=== PATIENT | male | born 1970 | race Caucasian/White ===

== ENCOUNTER → 2017-01-14 | Outpatient (REF) | payer BC, MEDICAID, OTHER | LOC: M SFHCPLAZ 11:04 | PROVIDERS: ATTEND Internal Medicine Infectious Disease | DX: L73.2 Hidradenitis suppurativa (principal) ==

== ENCOUNTER → 2021-01-06 | Outpatient (REF) | payer BC, OTHER ==
[2021-01-06 14:38] LABS: APPEARANCE, URINE CLEAR (CLEAR); BACTERIA, URINE AUTO NEGATIVE (NEGATIVE); BILIRUBIN, URINE AUTO NEGATIVE (NEGATIVE); BLOOD, URINE BLOOD NEGATIVE (NEGATIVE); COLOR, URINE YELLOW (YELLOW); GLUCOSE, URINE (UA) AUTO NEGATIVE (NEGATIVE); KETONE, URINE AUTO NEGATIVE (NEGATIVE); LEUKOCYTE ESTERASE, URINE AUTO NEGATIVE (NEGATIVE); NITRITE, URINE AUTO NEGATIVE (NEGATIVE); PROTEIN, URINE AUTO NEGATIVE (NEGATIVE); RBC, URINE AUTO 0 /HPF (0-3); SPECIFIC GRAVITY URINE AUTO 1.006 (1.002-1.035); SQUAMOUS EPITHELIAL CELL UR AU 0 /HPF (0-6); UROBILINOGEN, URINE AUTO 0.2 mg/dL (0.0-2.0); WBC, URINE AUTO 0 /HPF (0-3)
== END ==
LOC: M SMT 13:26
PROVIDERS: ATTEND Nurse Practitioner Women's Health
DX: R36.1 Hematospermia (principal)

== ENCOUNTER → 2023-01-01 | Outpatient (CLI) | payer BC, OTHER ==
[2023-01-01 09:43] LABS: BASO # 0.1 10^3/uL (0.0-0.2); BASO % 0.8 % (0.0-1.0); EOS # 0.5 10^3/uL (0.0-0.5); EOS % 6.2 % (0.0-3.0); HEMOGLOBIN 14.3 g/dl (13.5-17.5); LYMPH # 2.4 10^3/uL (1.5-5.0); LYMPH % 28.1 % (24.0-44.0); MEAN CORPUSCULAR HEMOGLOBIN 30.6 pg (27.0-33.0); MEAN CORPUSCULAR HGB CONC 35.8 g/dl (32.0-36.5); MEAN CORPUSCULAR VOLUME 85.7 fl (80.0-96.0); MONO # 0.9 10^3/uL (0.0-0.8); MONO % 11.1 % (2.0-8.0); NEUTROPHILS # 4.5 10^3/uL (1.5-8.5); NEUTROPHILS % 53.6 % (36.0-66.0); PLATELET COUNT, AUTOMATED 370 10^3/uL (150-450); RED BLOOD COUNT 4.67 10^6/uL (4.30-6.10); WHITE BLOOD COUNT 8.4 10^3/uL (4.0-10.0)
[2023-01-01 10:08] LABS: HEMOGLOBIN A1c 5.4 % (4.0-6.0)
[2023-01-01 10:14] LABS: ALBUMIN 3.8 G/DL (3.2-5.2); ALKALINE PHOSPHATASE 64 U/L (46-116); ALT/SGPT 27 U/L (7.0-40); AST/SGOT 29 U/L (<34); BILIRUBIN,TOTAL 0.7 MG/DL (0.3-1.2); BLOOD UREA NITROGEN 11 MG/DL (9-23); CALCIUM LEVEL 9.2 MG/DL (8.5-10.1); CARBON DIOXIDE LEVEL 30 MMOL/L (20-31); CHLORIDE LEVEL 92 MMOL/L (98-107); CHOLESTEROL LEVEL 145 MG/DL (<200); CHOLESTEROL RISK RATIO 5.53 (<5); CREATININE FOR GFR 0.67 MG/DL (0.70-1.30); GLOMERULAR FILTRATION RATE > 60.0 (>56); GLUCOSE, FASTING 93 MG/DL (60-100); HDL CHOLESTEROL 26.2 MG/DL (>40); LDL CHOLESTEROL 98.6 MG/DL (<100); NON-HDL-C 118.8 MG/DL; SODIUM LEVEL 128 MMOL/L (136-145); THYROID STIMULATING HORMONE 2.241 uIU/ML (0.55-4.78); TOTAL 25(OH) VITAMIN D 21.4 NG/ML (20.0-100.0); TOTAL PROTEIN 7.4 G/DL (5.7-8.2); TRIGLYCERIDES LEVEL 101 MG/DL (<150)
== END ==
LOC: M WUC 08:11
PROVIDERS: ATTEND Nurse Practitioner Adult Health
DX: E78.5 Hyperlipidemia, unspecified (principal); I10 Essential (primary) hypertension; F17.210 Nicotine dependence, cigarettes, uncomplicated; E55.9 Vitamin D deficiency, unspecified; R53.83 Other fatigue; Z79.899 Other long term (current) drug therapy

== ENCOUNTER → 2023-01-20 | Outpatient (CLI) | payer OTHER | LOC: M RAD 12:08 | PROVIDERS: ATTEND Nurse Practitioner Adult Health | DX: R91.8 Other nonspecific abnormal finding of lung field (principal) ==

== ENCOUNTER → 2023-03-12 | Outpatient (CLI) | payer OTHER ==
[~2023-03-12] MED LIST: AMLO1TAB24 PO; ATEN100T PO; CETI-24 PO; COMBAER6 INH; ECOT81TA5 PO; IBUP-1857 PO; OMEP-173 PO
== END ==
LOC: M WUC 10:48
PROVIDERS: ATTEND Nurse Practitioner Adult Health
DX: J45.909 Unspecified asthma, uncomplicated (principal); R05.1 Acute cough; J06.9 Acute upper respiratory infection, unspecified; M54.16 Radiculopathy, lumbar region; J90 Pleural effusion, not elsewhere classified; J98.11 Atelectasis; M47.816 Spondylosis without myelopathy or radiculopathy, lumbar region; M47.817 Spondylosis without myelopathy or radiculopathy, lumbosacral region

== ENCOUNTER 2023-03-15 16:53 | Inpatient (IN) | payer OTHER ==
[~2023-03-15] VITALS: Ht 198.1 cm; Wt 109.1 kg
[2023-03-15 18:42] LABS: ALBUMIN 3.5 G/DL (3.2-5.2); ALKALINE PHOSPHATASE 87 U/L (46-116); ALT/SGPT 24 U/L (7.0-40); AST/SGOT 28 U/L (<34); BILIRUBIN,DIRECT 0.4 MG/DL (<0.4); BILIRUBIN,TOTAL 0.8 MG/DL (0.3-1.2); BLOOD UREA NITROGEN 11 MG/DL (9-23); CALCIUM LEVEL 9.6 MG/DL (8.5-10.1); CARBON DIOXIDE LEVEL 25 MMOL/L (20-31); CHLORIDE LEVEL 78 MMOL/L (98-107); CREATININE FOR GFR 0.61 MG/DL (0.70-1.30); GLOMERULAR FILTRATION RATE > 60.0 (>56); GLUCOSE, FASTING 95 MG/DL (60-100); POTASSIUM SERUM 4.7 MMOL/L (3.5-5.1); SODIUM LEVEL 113 MMOL/L (136-145); TOTAL PROTEIN 7.6 G/DL (5.7-8.2)
[2023-03-15 18:53] LABS: BASO % 0.3 % (0.0-1.0); EOS # 0.2 10^3/uL (0.0-0.5); EOS % 2.7 % (0.0-3.0); HEMATOCRIT 37.1 % (42.0-52.0); HEMOGLOBIN 13.8 g/dl (13.5-17.5); LYMPH # 2.2 10^3/uL (1.5-5.0); LYMPH % 25.7 % (24.0-44.0); MEAN CORPUSCULAR HEMOGLOBIN 29.7 pg (27.0-33.0); MEAN CORPUSCULAR HGB CONC 37.2 g/dl (32.0-36.5); MONO # 0.9 10^3/uL (0.0-0.8); MONO % 10.7 % (2.0-8.0); NEUTROPHILS # 5.2 10^3/uL (1.5-8.5); PLATELET COUNT, AUTOMATED 399 10^3/uL (150-450); RED BLOOD COUNT 4.64 10^6/uL (4.30-6.10); WHITE BLOOD COUNT 8.7 10^3/uL (4.0-10.0)
[2023-03-15 19:01] LABS: RSV AMPLIFICATION NEGATIVE (NEGATIVE)
[2023-03-15 19:06] LABS: MAGNESIUM LEVEL 1.7 MG/DL (1.8-2.4)
[2023-03-15 19:10] LABS: THYROID STIMULATING HORMONE 1.906 uIU/ML (0.55-4.78)
[2023-03-15 19:11] LABS: FREE T4 1.36 NG/DL (0.89-1.76)
[2023-03-15] MEDS ORDERED: ATEN100T PO (19:16)
[2023-03-15] MEDS ORDERED: COMBAER6 INH (19:16)
[2023-03-15] MEDS ORDERED: OMEP-173 PO (19:16)
[2023-03-15] MEDS ORDERED: CETI-24 PO (19:16)
[2023-03-15] MEDS ORDERED: AMLO1TAB24 PO (19:16)
[2023-03-15] MEDS ORDERED: ECOT81TA5 PO (19:19)
[2023-03-15] MEDS ORDERED: IBUP-1857 PO (19:19)
[2023-03-15] MEDS ORDERED: HOME MED LIST COMPLETE! XX SCH (19:25)
[2023-03-15 19:33] LABS: OSMOLALITY SERUM 238 MOSM/KG (275-295)
[2023-03-15] MEDS ORDERED: methylPREDNISolone 125MG 2ML VIAL IV ONE (20:00)
[2023-03-15] MEDS ORDERED: IPRATROPIUM 0.5MG/ALBUTEROL 2.5MG INH SOL UD 3ML (DUONEB) NEB PRN (20:00)
[2023-03-15] MEDS ORDERED: ISOVUE-370 76% 100ML VIAL As Ordered ONE (20:18)
[2023-03-15 20:40] LABS: CREATININE,RANDOM URINE 196.8 MG/DL
[2023-03-15 20:45] LABS: CK-MB VALUE MASS 4.3 NG/ML (<3.6); CPK CREATINE PHOSPHOKINASE 233 U/L (46-171); MB/CK RELATIVE INDEX 1.84 (< OR =4)
[2023-03-15] MEDS ORDERED: MAG SULF 1GM/100ML (MAG RUN) 1 GM in IV 1 EA IV ONE (20:55)
[2023-03-15 21:21] LABS: BLOOD UREA NITROGEN 11 MG/DL (9-23); CALCIUM LEVEL 8.8 MG/DL (8.5-10.1); CARBON DIOXIDE LEVEL 17 MMOL/L (20-31); CHLORIDE LEVEL 80 MMOL/L (98-107); GLOMERULAR FILTRATION RATE > 60.0 (>56); GLUCOSE, FASTING 95 MG/DL (60-100); POTASSIUM SERUM 4.8 MMOL/L (3.5-5.1); SODIUM LEVEL 111 MMOL/L (136-145)
[2023-03-15] MEDS ORDERED: ACETAMINOPHEN TAB 650MG DOSE (2X325MG) PO PRN (22:15)
[2023-03-15 23:15] VITALS: BP 163/95; TEMP 97; O2SAT 98
[2023-03-15] MEDS: SODIUM CHLORIDE 1 GM TAB PO SCH (23:24)
[2023-03-16 04:01] VITALS: BP 158/90; TEMP 97.5; O2SAT 98
[2023-03-16 05:28] LABS: BLOOD UREA NITROGEN 9 MG/DL (9-23); CALCIUM LEVEL 9.1 MG/DL (8.5-10.1); CARBON DIOXIDE LEVEL 23 MMOL/L (20-31); CHLORIDE LEVEL 80 MMOL/L (98-107); CREATININE FOR GFR 0.42 MG/DL (0.70-1.30); GLOMERULAR FILTRATION RATE > 60.0 (>56); GLUCOSE, FASTING 140 MG/DL (60-100); MAGNESIUM LEVEL 1.9 MG/DL (1.8-2.4); POTASSIUM SERUM 4.3 MMOL/L (3.5-5.1); SODIUM LEVEL 113 MMOL/L (136-145)
[2023-03-16 05:46] LABS: HEMATOCRIT 36.7 % (42.0-52.0); HEMOGLOBIN 13.7 g/dl (13.5-17.5); MEAN CORPUSCULAR HEMOGLOBIN 29.6 pg (27.0-33.0); MEAN CORPUSCULAR VOLUME 79.3 fl (80.0-96.0); PLATELET COUNT, AUTOMATED 331 10^3/uL (150-450); RED BLOOD COUNT 4.63 10^6/uL (4.30-6.10); WHITE BLOOD COUNT 4.8 10^3/uL (4.0-10.0)
[2023-03-16 05:48] LABS: MEAN CORPUSCULAR HGB CONC 37.3 g/dl (32.0-36.5)
[2023-03-16 08:00] VITALS: BP 161/98; TEMP 98.1; O2SAT 96
[2023-03-16] MEDS: SYMBICORT 80/4.5MCG INHALER 6GM INH SCH ×2 (08:00→18:56)
[2023-03-16] MEDS: amLODIPine 5 MG TAB PO SCH (08:18)
[2023-03-16] MEDS: SODIUM CHLORIDE 1 GM TAB PO SCH ×3 (08:18→20:11)
[2023-03-16] MEDS: atenoloL 50 MG TAB PO SCH (08:19)
[2023-03-16] MEDS ORDERED: SODIUM CHLORIDE 1 GM TAB PO ONE (10:00)
[2023-03-16 11:56] LABS: BLOOD UREA NITROGEN 9 MG/DL (9-23); CALCIUM LEVEL 8.9 MG/DL (8.5-10.1); CARBON DIOXIDE LEVEL 25 MMOL/L (20-31); CHLORIDE LEVEL 79 MMOL/L (98-107); CREATININE FOR GFR 0.45 MG/DL (0.70-1.30); GLOMERULAR FILTRATION RATE > 60.0 (>56); GLUCOSE, FASTING 180 MG/DL (60-100); POTASSIUM SERUM 4.3 MMOL/L (3.5-5.1); SODIUM LEVEL 112 MMOL/L (136-145)
[2023-03-16 12:00] VITALS: BP 168/92; TEMP 97.8; O2SAT 96
[2023-03-16 12:24] LABS: PROCALCITONIN <0.04 ng/ml
[2023-03-16] MEDS: IPRATROPIUM 0.5MG/ALBUTEROL 2.5MG INH SOL UD 3ML (DUONEB) NEB SCH ×3 (13:10→18:58)
[2023-03-16] MEDS: COMBIVENT RESPIMAT 100-20MCG INHALER 4GM INH PRN ×2 (13:10→18:59)
[2023-03-16] MEDS: HEPARIN SOD (PORCINE) 5000UNITS/ML 1ML VIAL/SYRINGE SQ SCH ×2 (13:51→20:16)
[2023-03-16 16:00] VITALS: BP 141/87; TEMP 98; O2SAT 96
[2023-03-16] MEDS ORDERED: CALCIUM CARBONATE 500 MG CHEW U/D PO PRN (18:10)
[2023-03-16 18:22] LABS: BLOOD UREA NITROGEN 11 MG/DL (9-23); CALCIUM LEVEL 9.7 MG/DL (8.5-10.1); CARBON DIOXIDE LEVEL 28 MMOL/L (20-31); CHLORIDE LEVEL 81 MMOL/L (98-107); CREATININE FOR GFR 0.52 MG/DL (0.70-1.30); GLOMERULAR FILTRATION RATE > 60.0 (>56); GLUCOSE, FASTING 118 MG/DL (60-100); POTASSIUM SERUM 4.6 MMOL/L (3.5-5.1); SODIUM LEVEL 116 MMOL/L (136-145)
[2023-03-16 20:05] VITALS: BP 147/95; TEMP 96.9; O2SAT 94
[2023-03-16] MEDS: OMEPRAZOLE 20MG CAP PO SCH (20:11)
[2023-03-16] MEDS: CETIRIZINE (ZyrTEC) 10 MG TAB PO SCH (20:11)
[2023-03-16] MEDS: ASPIRIN 81MG ENTERIC TABLET PO SCH (20:11)
[2023-03-16 22:16] LABS: BLOOD UREA NITROGEN 8 MG/DL (9-23); CALCIUM LEVEL 9.3 MG/DL (8.5-10.1); CARBON DIOXIDE LEVEL 26 MMOL/L (20-31); CHLORIDE LEVEL 83 MMOL/L (98-107); CREATININE FOR GFR 0.48 MG/DL (0.70-1.30); GLOMERULAR FILTRATION RATE > 60.0 (>56); GLUCOSE, FASTING 130 MG/DL (60-100); POTASSIUM SERUM 3.8 MMOL/L (3.5-5.1); SODIUM LEVEL 117 MMOL/L (136-145)
[2023-03-17] VITALS: BP 147/89; TEMP 97.9; O2SAT 98
[2023-03-17] MEDS: IPRATROPIUM 0.5MG/ALBUTEROL 2.5MG INH SOL UD 3ML (DUONEB) NEB SCH ×5 (02:00→19:23)
[2023-03-17] MEDS: COMBIVENT RESPIMAT 100-20MCG INHALER 4GM INH PRN ×3 (03:00→19:16)
[2023-03-17 04:00] VITALS: BP 135/83; TEMP 98.5; O2SAT 97
[2023-03-17] MEDS: HEPARIN SOD (PORCINE) 5000UNITS/ML 1ML VIAL/SYRINGE SQ SCH ×3 (05:39→20:14)
[2023-03-17 05:51] LABS: BLOOD UREA NITROGEN 9 MG/DL (9-23); CALCIUM LEVEL 9.6 MG/DL (8.5-10.1); CARBON DIOXIDE LEVEL 28 MMOL/L (20-31); CHLORIDE LEVEL 83 MMOL/L (98-107); CREATININE FOR GFR 0.53 MG/DL (0.70-1.30); GLOMERULAR FILTRATION RATE > 60.0 (>56); GLUCOSE, FASTING 113 MG/DL (60-100); SODIUM LEVEL 120 MMOL/L (136-145)
[2023-03-17] MEDS: SYMBICORT 80/4.5MCG INHALER 6GM INH SCH ×2 (07:37→19:16)
[2023-03-17 07:54] VITALS: BP 160/90; TEMP 98.1; O2SAT 98
[2023-03-17] MEDS: atenoloL 50 MG TAB PO SCH (08:14)
[2023-03-17] MEDS: SODIUM CHLORIDE 1 GM TAB PO SCH ×3 (08:14→20:13)
[2023-03-17] MEDS: amLODIPine 5 MG TAB PO SCH (08:14)
[2023-03-17 11:41] LABS: BLOOD UREA NITROGEN 11 MG/DL (9-23); CALCIUM LEVEL 9.5 MG/DL (8.5-10.1); CARBON DIOXIDE LEVEL 29 MMOL/L (20-31); CHLORIDE LEVEL 82 MMOL/L (98-107); CREATININE FOR GFR 0.54 MG/DL (0.70-1.30); GLOMERULAR FILTRATION RATE > 60.0 (>56); GLUCOSE, FASTING 108 MG/DL (60-100); POTASSIUM SERUM 3.8 MMOL/L (3.5-5.1); SODIUM LEVEL 118 MMOL/L (136-145)
[2023-03-17 12:00] VITALS: BP 149/91; TEMP 97.9; O2SAT 100
[2023-03-17 15:38] VITALS: BP 125/81; TEMP 97.1; O2SAT 99
[2023-03-17 17:01] LABS: BLOOD UREA NITROGEN 12 MG/DL (9-23); CALCIUM LEVEL 9.7 MG/DL (8.5-10.1); CARBON DIOXIDE LEVEL 26 MMOL/L (20-31); CHLORIDE LEVEL 84 MMOL/L (98-107); CREATININE FOR GFR 0.46 MG/DL (0.70-1.30); GLOMERULAR FILTRATION RATE > 60.0 (>56); GLUCOSE, FASTING 105 MG/DL (60-100); SODIUM LEVEL 118 MMOL/L (136-145)
[2023-03-17 17:02] LABS: POTASSIUM SERUM 4.5 MMOL/L (3.5-5.1)
[2023-03-17] MEDS: OMEPRAZOLE 20MG CAP PO SCH (20:13)
[2023-03-17] MEDS: CETIRIZINE (ZyrTEC) 10 MG TAB PO SCH (20:13)
[2023-03-17] MEDS: ASPIRIN 81MG ENTERIC TABLET PO SCH (20:13)
[2023-03-17 23:25] LABS: BLOOD UREA NITROGEN 11 MG/DL (9-23); CALCIUM LEVEL 9.1 MG/DL (8.5-10.1); CARBON DIOXIDE LEVEL 29 MMOL/L (20-31); CHLORIDE LEVEL 88 MMOL/L (98-107); CREATININE FOR GFR 0.54 MG/DL (0.70-1.30); GLOMERULAR FILTRATION RATE > 60.0 (>56); GLUCOSE, FASTING 106 MG/DL (60-100); POTASSIUM SERUM 4.1 MMOL/L (3.5-5.1); SODIUM LEVEL 124 MMOL/L (136-145)
[2023-03-17 23:44] VITALS: BP 147/80; TEMP 96.6; O2SAT 98
[2023-03-18] MEDS: IPRATROPIUM 0.5MG/ALBUTEROL 2.5MG INH SOL UD 3ML (DUONEB) NEB SCH ×4 (01:16→19:27)
[2023-03-18 04:00] VITALS: BP 152/82; TEMP 97; O2SAT 98
[2023-03-18 05:38] LABS: ALBUMIN 3.4 G/DL (3.2-5.2); BLOOD UREA NITROGEN 11 MG/DL (9-23); CALCIUM LEVEL 9.2 MG/DL (8.5-10.1); CARBON DIOXIDE LEVEL 27 MMOL/L (20-31); CHLORIDE LEVEL 87 MMOL/L (98-107); CREATININE FOR GFR 0.48 MG/DL (0.70-1.30); GLOMERULAR FILTRATION RATE > 60.0 (>56); GLUCOSE, FASTING 104 MG/DL (60-100); PHOSPHORUS LEVEL 3.6 MG/DL (2.5-4.9); POTASSIUM SERUM 3.9 MMOL/L (3.5-5.1); SODIUM LEVEL 123 MMOL/L (136-145)
[2023-03-18] MEDS: HEPARIN SOD (PORCINE) 5000UNITS/ML 1ML VIAL/SYRINGE SQ SCH ×3 (06:36→21:13)
[2023-03-18 08:00] VITALS: TEMP 97.6; O2SAT 96
[2023-03-18] MEDS: SYMBICORT 80/4.5MCG INHALER 6GM INH SCH ×2 (08:18→19:26)
[2023-03-18] MEDS: SODIUM CHLORIDE 1 GM TAB PO SCH ×3 (08:39→21:13)
[2023-03-18] MEDS: atenoloL 50 MG TAB PO SCH (08:40)
[2023-03-18] MEDS: amLODIPine 5 MG TAB PO SCH (08:40)
[2023-03-18 12:00] VITALS: BP 126/89; TEMP 96.9; O2SAT 99
[2023-03-18 12:25] LABS: BLOOD UREA NITROGEN 14 MG/DL (9-23); CALCIUM LEVEL 9.5 MG/DL (8.5-10.1); CARBON DIOXIDE LEVEL 26 MMOL/L (20-31); CHLORIDE LEVEL 90 MMOL/L (98-107); CREATININE FOR GFR 0.53 MG/DL (0.70-1.30); GLOMERULAR FILTRATION RATE > 60.0 (>56); GLUCOSE, FASTING 115 MG/DL (60-100); POTASSIUM SERUM 4.3 MMOL/L (3.5-5.1); SODIUM LEVEL 124 MMOL/L (136-145)
[2023-03-18] MEDS: COMBIVENT RESPIMAT 100-20MCG INHALER 4GM INH PRN ×2 (15:26→19:26)
[2023-03-18 16:00] VITALS: BP 113/76; TEMP 97.6; O2SAT 98
[2023-03-18 17:39] LABS: BLOOD UREA NITROGEN 15 MG/DL (9-23); CALCIUM LEVEL 9.5 MG/DL (8.5-10.1); CARBON DIOXIDE LEVEL 26 MMOL/L (20-31); CHLORIDE LEVEL 90 MMOL/L (98-107); CREATININE FOR GFR 0.52 MG/DL (0.70-1.30); GLOMERULAR FILTRATION RATE > 60.0 (>56); GLUCOSE, FASTING 116 MG/DL (60-100); SODIUM LEVEL 125 MMOL/L (136-145)
[2023-03-18 19:59] VITALS: BP 150/89; TEMP 97; O2SAT 98
[2023-03-18] MEDS: ASPIRIN 81MG ENTERIC TABLET PO SCH (21:14)
[2023-03-18] MEDS: OMEPRAZOLE 20MG CAP PO SCH (21:14)
[2023-03-18] MEDS: CETIRIZINE (ZyrTEC) 10 MG TAB PO SCH (21:14)
[2023-03-18 23:25] VITALS: BP 140/99; TEMP 98; O2SAT 98
[2023-03-18 23:44] LABS: BLOOD UREA NITROGEN 14 MG/DL (9-23); CALCIUM LEVEL 8.9 MG/DL (8.5-10.1); CARBON DIOXIDE LEVEL 27 MMOL/L (20-31); CHLORIDE LEVEL 91 MMOL/L (98-107); CREATININE FOR GFR 0.52 MG/DL (0.70-1.30); GLOMERULAR FILTRATION RATE > 60.0 (>56); GLUCOSE, FASTING 115 MG/DL (60-100); POTASSIUM SERUM 4.2 MMOL/L (3.5-5.1); SODIUM LEVEL 127 MMOL/L (136-145)
[2023-03-19] MEDS ORDERED: atenoloL 50 MG TAB PO ONE (01:10)
[2023-03-19 01:34] LABS: MAGNESIUM LEVEL 1.8 MG/DL (1.8-2.4)
[2023-03-19] MEDS: IPRATROPIUM 0.5MG/ALBUTEROL 2.5MG INH SOL UD 3ML (DUONEB) NEB SCH ×4 (02:00→19:33)
[2023-03-19 02:22] VITALS: BP 140/85
[2023-03-19] MEDS: COMBIVENT RESPIMAT 100-20MCG INHALER 4GM INH PRN ×2 (02:44→07:49)
[2023-03-19] MEDS ORDERED: METOPROLOL 5 MG/5 ML VIAL IV SCH (03:05)
[2023-03-19] MEDS ORDERED: METOPROLOL 5 MG/5 ML VIAL IV STA (03:07)
[2023-03-19] MEDS ORDERED: METOPROLOL 5 MG/5 ML VIAL IV ONE (03:15)
[2023-03-19 03:41] VITALS: BP 135/79; TEMP 97.2; O2SAT 97
[2023-03-19 05:39] LABS: HEMATOCRIT 39.1 % (42.0-52.0); MEAN CORPUSCULAR HEMOGLOBIN 29.8 pg (27.0-33.0); MEAN CORPUSCULAR HGB CONC 35.8 g/dl (32.0-36.5); MEAN CORPUSCULAR VOLUME 83.2 fl (80.0-96.0); PLATELET COUNT, AUTOMATED 378 10^3/uL (150-450); WHITE BLOOD COUNT 10.8 10^3/uL (4.0-10.0)
[2023-03-19] MEDS: HEPARIN SOD (PORCINE) 5000UNITS/ML 1ML VIAL/SYRINGE SQ SCH ×3 (05:43→22:55)
[2023-03-19 06:04] LABS: BLOOD UREA NITROGEN 11 MG/DL (9-23); CALCIUM LEVEL 9.1 MG/DL (8.5-10.1); CARBON DIOXIDE LEVEL 27 MMOL/L (20-31); CHLORIDE LEVEL 90 MMOL/L (98-107); GLOMERULAR FILTRATION RATE > 60.0 (>56); GLUCOSE, FASTING 104 MG/DL (60-100); POTASSIUM SERUM 4.1 MMOL/L (3.5-5.1); SODIUM LEVEL 126 MMOL/L (136-145)
[2023-03-19] MEDS ORDERED: FUROSEMIDE 20MG/2ML VIAL IV ONE (06:50)
[2023-03-19] MEDS: SYMBICORT 80/4.5MCG INHALER 6GM INH SCH ×2 (07:50→19:33)
[2023-03-19 08:21] VITALS: BP 124/85; TEMP 97.9; O2SAT 95
[2023-03-19] MEDS: METOPROLOL TART 25 MG TABLET PO SCH ×2 (08:45→20:35)
[2023-03-19] MEDS: SODIUM CHLORIDE 1 GM TAB PO SCH ×3 (08:47→20:34)
[2023-03-19] MEDS: amLODIPine 5 MG TAB PO SCH (09:00)
[2023-03-19] MEDS: atenoloL 50 MG TAB PO SCH (09:00)
[2023-03-19 11:24] LABS: BLOOD UREA NITROGEN 10 MG/DL (9-23); CALCIUM LEVEL 9.3 MG/DL (8.5-10.1); CARBON DIOXIDE LEVEL 31 MMOL/L (20-31); CHLORIDE LEVEL 89 MMOL/L (98-107); GLOMERULAR FILTRATION RATE > 60.0 (>56); GLUCOSE, FASTING 108 MG/DL (60-100); POTASSIUM SERUM 4.1 MMOL/L (3.5-5.1); SODIUM LEVEL 127 MMOL/L (136-145)
[2023-03-19 12:36] VITALS: BP 132/79; TEMP 96.5; O2SAT 98
[2023-03-19] MEDS ORDERED: ACETAMINOPHEN 1000MG 100ML IV BAG As Ordered ONE (13:40)
[2023-03-19] MEDS ORDERED: MIDAZOLAM INJ 2MG/2ML VIAL As Ordered ONE (13:40)
[2023-03-19] MEDS ORDERED: fentaNYL 100 MCG/2 ML INJECTION As Ordered ONE (13:40)
[2023-03-19] MEDS ORDERED: LIDOCAINE 2% 100MG/5ML SDV (FOR ANES.) As Ordered ONE (13:40)
[2023-03-19] MEDS ORDERED: propofoL 200 MG/20 ML VIAL As Ordered ONE (13:41)
[2023-03-19] MEDS ORDERED: ONDANSETRON 4MG 2ML VIAL As Ordered ONE (13:41)
[2023-03-19] MEDS ORDERED: SUGAMMADEX SODIUM 500 MG/5 ML VIAL (BRIDION) As Ordered ONE (13:41)
[2023-03-19] MEDS ORDERED: ROCURONIUM BROMIDE 50MG/5ML VIAL As Ordered ONE (13:41)
[2023-03-19] MEDS ORDERED: THROMBIN 5,000 UNITS VIAL As Ordered ONE (13:47)
[2023-03-19] MEDS ORDERED: CETACAINE SPRAY 5GM As Ordered ONE (13:47)
[2023-03-19] MEDS ORDERED: EPINEPHrine 1MG/10ML SYRINGE 1.5IN As Ordered ONE (13:47)
[2023-03-19] MEDS ORDERED: ePHEDrine SULFATE 25 MG/5 ML(5MG/ML) SYRINGE As Ordered ONE (14:17)
[2023-03-19] MEDS ORDERED: VASOPRESSIN INJ 20UNITS/ML 1ML VIAL As Ordered ONE (14:17)
[2023-03-19] MEDS ORDERED: oxyCODONE 5MG TAB PO PRN (14:45)
[2023-03-19] MEDS ORDERED: fentaNYL 100 MCG/2 ML INJECTION IV PRN (14:45)
[2023-03-19] MEDS ORDERED: HYDROMORPHONE HCL 0.5 MG/ 0.5 ML SYRINGE IV PRN (14:45)
[2023-03-19] MEDS ORDERED: ONDANSETRON 4MG 2ML VIAL IV PRN (14:45)
[2023-03-19] MEDS ORDERED: LR 1,000 ML IV SCH (14:45)
[2023-03-19 17:41] LABS: BLOOD UREA NITROGEN 12 MG/DL (9-23); CALCIUM LEVEL 9.5 MG/DL (8.5-10.1); CARBON DIOXIDE LEVEL 31 MMOL/L (20-31); CHLORIDE LEVEL 91 MMOL/L (98-107); CREATININE FOR GFR 0.66 MG/DL (0.70-1.30); GLOMERULAR FILTRATION RATE > 60.0 (>56); GLUCOSE, FASTING 117 MG/DL (60-100); POTASSIUM SERUM 4.4 MMOL/L (3.5-5.1); SODIUM LEVEL 127 MMOL/L (136-145)
[2023-03-19 20:00] VITALS: BP 114/65; TEMP 96.9; O2SAT 97
[2023-03-19] MEDS: ASPIRIN 81MG ENTERIC TABLET PO SCH (20:34)
[2023-03-19] MEDS: CETIRIZINE (ZyrTEC) 10 MG TAB PO SCH (20:34)
[2023-03-19] MEDS: OMEPRAZOLE 20MG CAP PO SCH (20:34)
[2023-03-19 20:35] VITALS: BP 114/65
[2023-03-19 23:58] LABS: BLOOD UREA NITROGEN 13 MG/DL (9-23); CALCIUM LEVEL 9.1 MG/DL (8.5-10.1); CARBON DIOXIDE LEVEL 26 MMOL/L (20-31); CHLORIDE LEVEL 93 MMOL/L (98-107); CREATININE FOR GFR 0.52 MG/DL (0.70-1.30); GLOMERULAR FILTRATION RATE > 60.0 (>56); GLUCOSE, FASTING 164 MG/DL (60-100); POTASSIUM SERUM 4.1 MMOL/L (3.5-5.1); SODIUM LEVEL 128 MMOL/L (136-145)
[2023-03-20] VITALS (9 sets, daily range): BP systolic 125–143; BP diastolic 68–82; TEMP 96.3–97; O2SAT 95–99
[2023-03-20] MEDS: IPRATROPIUM 0.5MG/ALBUTEROL 2.5MG INH SOL UD 3ML (DUONEB) NEB SCH ×3 (01:21→13:47)
[2023-03-20 05:48] LABS: BLOOD UREA NITROGEN 12 MG/DL (9-23); CALCIUM LEVEL 9.7 MG/DL (8.5-10.1); CARBON DIOXIDE LEVEL 29 MMOL/L (20-31); CHLORIDE LEVEL 95 MMOL/L (98-107); CREATININE FOR GFR 0.61 MG/DL (0.70-1.30); GLOMERULAR FILTRATION RATE > 60.0 (>56); GLUCOSE, FASTING 122 MG/DL (60-100); POTASSIUM SERUM 4.9 MMOL/L (3.5-5.1); SODIUM LEVEL 129 MMOL/L (136-145)
[2023-03-20] MEDS: HEPARIN SOD (PORCINE) 5000UNITS/ML 1ML VIAL/SYRINGE SQ SCH ×2 (06:14→14:00)
[2023-03-20] MEDS: SYMBICORT 80/4.5MCG INHALER 6GM INH SCH (07:21)
[2023-03-20] MEDS: SODIUM CHLORIDE 1 GM TAB PO SCH (09:37)
[2023-03-20] MEDS: METOPROLOL TART 25 MG TABLET PO SCH (09:37)
[2023-03-20] MEDS: amLODIPine 5 MG TAB PO SCH (09:38)
[2023-03-23] MEDS ORDERED: ALBU8.5H (13:37)
[2023-03-25] MEDS ORDERED: ONDA-84 PO (13:36)
[2023-03-25] MEDS ORDERED: PROC10TA5 PO (13:36)
== END 2023-03-20 15:37 | disposition home or self-care (01) | DRG 136 ==
LOC: M ED 16:53 → M ED INP 22:14 → M ICU 23:07 → M PCU 03-16 19:52
PROVIDERS: ADMIT Family Medicine; ATTEND Family Medicine
PROC: 0BB78ZX Excision of Left Main Bronchus, Via Natural or Artificial Opening Endoscopic, Diagnostic (ICD-10-PCS; principal; 2023-03-19 14:00)
DX: C34.02 Malignant neoplasm of left main bronchus (principal); E22.2 Syndrome of inappropriate secretion of antidiuretic hormone; E87.1 Hypo-osmolality and hyponatremia; I48.91 Unspecified atrial fibrillation; I10 Essential (primary) hypertension; J44.9 Chronic obstructive pulmonary disease, unspecified; K21.9 Gastro-esophageal reflux disease without esophagitis; Z79.82 Long term (current) use of aspirin; Z79.899 Other long term (current) drug therapy; R06.00 Dyspnea, unspecified; F17.200 Nicotine dependence, unspecified, uncomplicated

== ENCOUNTER → 2023-03-20 | Outpatient (CLI) | payer OTHER ==
[~2023-03-20] MED LIST changes: +ALBU8.5H; +ONDA-84 PO; +PROC10TA5 PO
== END ==
LOC: M EKG 15:47
PROVIDERS: ATTEND Internal Medicine
DX: I48.0 Paroxysmal atrial fibrillation (principal)

== ENCOUNTER → 2023-03-22 | Outpatient (CLI) | payer OTHER ==
[~2023-03-22] MED LIST changes: -ONDA-84 PO; -PROC10TA5 PO
== END ==
LOC: M ONCR 13:01
PROVIDERS: ATTEND General Practice
DX: C34.32 Malignant neoplasm of lower lobe, left bronchus or lung (principal); F17.210 Nicotine dependence, cigarettes, uncomplicated; Z71.2 Person consulting for explanation of examination or test findings; Z79.82 Long term (current) use of aspirin; Z79.899 Other long term (current) drug therapy

== ENCOUNTER → 2023-04-08 | Outpatient (RCR) | payer OTHER ==
[~2023-04-08] MED LIST changes: +CARA1TAB6 PO; +LIDO30CR18 TOP; +MAGN400T35 PO; +ONDA-84 PO; +OXYC1SOL3 PO; +PROC10TA5 PO; +WELLTAB38 PO
== END ==
LOC: M ONCR 03-23 14:26
PROVIDERS: ATTEND General Practice
DX: Z51.0 Encounter for antineoplastic radiation therapy (principal); C34.32 Malignant neoplasm of lower lobe, left bronchus or lung

== ENCOUNTER → 2023-04-13 | Outpatient (CLI) | payer OTHER ==
[~2023-04-13] MED LIST changes: -CARA1TAB6 PO; -LIDO30CR18 TOP; -MAGN400T35 PO; -OXYC1SOL3 PO; +PROHANCE 279.3MG/ML 15ML VIAL As Ordered ONE; +PROHANCE 279.3MG/ML 5ML VIAL As Ordered ONE
== END ==
LOC: M RAD 13:28
PROVIDERS: ATTEND General Practice
DX: C34.32 Malignant neoplasm of lower lobe, left bronchus or lung (principal)
CPT/HCPCS: 70553; A9576

== ENCOUNTER → 2023-04-15 | Outpatient (CLI) | payer OTHER ==
[~2023-04-15] MED LIST changes: +LIDO30CR18 TOP; +MAGN400T35 PO; -PROHANCE 279.3MG/ML 15ML VIAL As Ordered ONE; -PROHANCE 279.3MG/ML 5ML VIAL As Ordered ONE
== END ==
LOC: M RAD 04-14 11:49
PROVIDERS: ATTEND General Practice
DX: C34.32 Malignant neoplasm of lower lobe, left bronchus or lung (principal); M16.11 Unilateral primary osteoarthritis, right hip; M17.11 Unilateral primary osteoarthritis, right knee

== ENCOUNTER → 2023-04-26 | Outpatient (CLI) | payer OTHER | LOC: M PLARAD 08:43 | PROVIDERS: ATTEND General Practice | DX: C34.32 Malignant neoplasm of lower lobe, left bronchus or lung (principal); J84.10 Pulmonary fibrosis, unspecified; R59.0 Localized enlarged lymph nodes | CPT/HCPCS: 78815; A9552 ==

== ENCOUNTER 2023-05-07 07:51 | Outpatient (RCR) | payer OTHER ==
[~2023-05-07 07:51] MED LIST changes: +CARA1TAB6 PO; +OXYC1SOL3 PO
== END 2023-05-09 ==
LOC: M ONCR 07:51
PROVIDERS: ATTEND General Practice
DX: Z51.0 Encounter for antineoplastic radiation therapy (principal); C34.32 Malignant neoplasm of lower lobe, left bronchus or lung

== ENCOUNTER 2023-05-27 10:39 | Outpatient (RCR) | payer OTHER ==
[2023-05-27] MEDS ORDERED: OXYC1SOL3 PO (11:09)
[2023-06-15] MEDS ORDERED: MAGN400T2 PO (13:39)
== END 2023-06-09 ==
LOC: M ONCR 10:39
PROVIDERS: ATTEND General Practice
DX: Z51.0 Encounter for antineoplastic radiation therapy (principal); C34.32 Malignant neoplasm of lower lobe, left bronchus or lung

== ENCOUNTER → 2023-06-30 | Outpatient (CLI) | payer OTHER ==
[~2023-06-30] MED LIST changes: +MAGN400T2 PO; +SLOWTAB2 PO
[2023-06-30 09:59] LABS: BASO # 0.1 10^3/uL (0.0-0.2); BASO % 0.6 % (0.0-1.0); EOS % 0.3 % (0.0-3.0); HEMOGLOBIN 10.3 g/dl (13.5-17.5); LYMPH # 1.5 10^3/uL (1.5-5.0); MEAN CORPUSCULAR HEMOGLOBIN 33.1 pg (27.0-33.0); MEAN CORPUSCULAR HGB CONC 33.2 g/dl (32.0-36.5); MEAN CORPUSCULAR VOLUME 99.7 fl (80.0-96.0); MONO # 1.8 10^3/uL (0.0-0.8); MONO % 14.2 % (2.0-8.0); NEUTROPHILS # 9.2 10^3/uL (1.5-8.5); NEUTROPHILS % 72.4 % (36.0-66.0); PLATELET COUNT, AUTOMATED 394 10^3/uL (150-450); RED BLOOD COUNT 3.11 10^6/uL (4.30-6.10); WHITE BLOOD COUNT 12.7 10^3/uL (4.0-10.0)
[2023-06-30 10:07] LABS: HEMOGLOBIN A1c 4.9 % (4.0-6.0)
[2023-06-30 10:30] LABS: THYROID STIMULATING HORMONE 2.237 uIU/ML (0.55-4.78)
[2023-06-30 10:34] LABS: ALBUMIN 3.4 G/DL (3.2-5.2); ALKALINE PHOSPHATASE 78 U/L (46-116); ALT/SGPT 11 U/L (7.0-40); AST/SGOT 8 U/L (<34); BILIRUBIN,TOTAL 0.4 MG/DL (0.3-1.2); BLOOD UREA NITROGEN 9 MG/DL (9-23); CALCIUM LEVEL 9.1 MG/DL (8.5-10.1); CARBON DIOXIDE LEVEL 31 MMOL/L (20-31); CHLORIDE LEVEL 97 MMOL/L (98-107); CHOLESTEROL LEVEL 215 MG/DL (<200); CHOLESTEROL RISK RATIO 6.57 (<5); CREATININE FOR GFR 0.74 MG/DL (0.70-1.30); GLOMERULAR FILTRATION RATE > 60.0 (>56); GLUCOSE, FASTING 109 MG/DL (60-100); HDL CHOLESTEROL 32.7 MG/DL (>40); LDL CHOLESTEROL 151.5 MG/DL (<100); MAGNESIUM LEVEL 1.3 MG/DL (1.8-2.4); NON-HDL-C 182.3 MG/DL; POTASSIUM SERUM 3.9 MMOL/L (3.5-5.1); SODIUM LEVEL 134 MMOL/L (136-145); TOTAL PROTEIN 6.9 G/DL (5.7-8.2); TRIGLYCERIDES LEVEL 154 MG/DL (<150)
== END ==
LOC: M WUC 08:13
PROVIDERS: ATTEND Internal Medicine Cardiovascular Disease
DX: I48.0 Paroxysmal atrial fibrillation (principal); C34.92 Malignant neoplasm of unspecified part of left bronchus or lung; I11.0 Hypertensive heart disease with heart failure; E87.1 Hypo-osmolality and hyponatremia; I50.9 Heart failure, unspecified; Z13.1 Encounter for screening for diabetes mellitus

== ENCOUNTER → 2023-08-02 | Outpatient (CLI) | payer OTHER | LOC: M RAD 11:46 | PROVIDERS: ATTEND General Practice | DX: C34.32 Malignant neoplasm of lower lobe, left bronchus or lung (principal); C79.31 Secondary malignant neoplasm of brain ==

== ENCOUNTER → 2023-08-02 | Outpatient (CLI) | payer OTHER ==
[~2023-08-02] MED LIST changes: +GASTROGRAFIN SOLUTION 30ML As Ordered ONE; +ISOVUE-370 76% 100ML VIAL As Ordered ONE; +PROHANCE 279.3MG/ML 15ML VIAL As Ordered ONE; +PROHANCE 279.3MG/ML 5ML VIAL As Ordered ONE
== END ==
LOC: M RAD 11:59
PROVIDERS: ATTEND Nurse Practitioner
DX: C34.90 Malignant neoplasm of unspecified part of unspecified bronchus or lung (principal); N28.1 Cyst of kidney, acquired
CPT/HCPCS: 71260; 74177; A9576; Q9963; Q9967

== ENCOUNTER 2023-08-05 10:35 | Outpatient (RCR) | payer OTHER ==
[~2023-08-05 10:35] MED LIST changes: -GASTROGRAFIN SOLUTION 30ML As Ordered ONE; -ISOVUE-370 76% 100ML VIAL As Ordered ONE; -PROHANCE 279.3MG/ML 15ML VIAL As Ordered ONE; -PROHANCE 279.3MG/ML 5ML VIAL As Ordered ONE
[2023-08-05] MEDS ORDERED: MEMA10TA19 PO (11:45)
[2023-08-10] MEDS ORDERED: CARV12.5 (11:24)
[2023-08-10] MEDS ORDERED: ELIQ5TAB (11:24)
== END 2023-08-08 ==
LOC: M ONCR 10:35
PROVIDERS: ATTEND General Practice
DX: Z51.0 Encounter for antineoplastic radiation therapy (principal); C79.31 Secondary malignant neoplasm of brain

== ENCOUNTER → 2023-08-23 | Outpatient (CLI) | payer OTHER ==
[~2023-08-23] MED LIST changes: +CARV12.5; +ELIQ5TAB; +MEMA10TA PO
[2023-08-23 12:40] LABS: BASO # 0.1 10^3/uL (0.0-0.2); BASO % 0.7 % (0.0-1.0); EOS # 0.2 10^3/uL (0.0-0.5); EOS % 2.8 % (0.0-3.0); LYMPH # 1.7 10^3/uL (1.5-5.0); LYMPH % 22.9 % (24.0-44.0); MEAN CORPUSCULAR HGB CONC 32.5 g/dl (32.0-36.5); MEAN CORPUSCULAR VOLUME 95.2 fl (80.0-96.0); MONO # 0.7 10^3/uL (0.0-0.8); MONO % 9.4 % (2.0-8.0); NEUTROPHILS # 4.8 10^3/uL (1.5-8.5); NEUTROPHILS % 63.8 % (36.0-66.0); PLATELET COUNT, AUTOMATED 279 10^3/uL (150-450); WHITE BLOOD COUNT 7.5 10^3/uL (4.0-10.0)
[2023-08-23 13:07] LABS: BLOOD UREA NITROGEN 14 MG/DL (9-23); CARBON DIOXIDE LEVEL 32 MMOL/L (20-31); CHLORIDE LEVEL 102 MMOL/L (98-107); CREATININE FOR GFR 0.83 MG/DL (0.70-1.30); GLOMERULAR FILTRATION RATE > 60.0 (>56); GLUCOSE, FASTING 91 MG/DL (60-100); MAGNESIUM LEVEL 1.6 MG/DL (1.8-2.4); POTASSIUM SERUM 3.4 MMOL/L (3.5-5.1); SODIUM LEVEL 142 MMOL/L (136-145)
== END ==
LOC: M WUC 09:45
PROVIDERS: ATTEND Internal Medicine Cardiovascular Disease
DX: I50.9 Heart failure, unspecified (principal); I48.91 Unspecified atrial fibrillation; C34.92 Malignant neoplasm of unspecified part of left bronchus or lung; E87.1 Hypo-osmolality and hyponatremia; Z13.1 Encounter for screening for diabetes mellitus

== ENCOUNTER 2023-08-30 07:55 | Outpatient (RCR) | payer OTHER | END 2023-09-07 | LOC: M ONCR 07:55 | PROVIDERS: ATTEND General Practice | DX: Z51.0 Encounter for antineoplastic radiation therapy (principal); C34.32 Malignant neoplasm of lower lobe, left bronchus or lung; C79.31 Secondary malignant neoplasm of brain ==

== ENCOUNTER → 2023-09-09 | Outpatient (CLI) | payer OTHER ==
[2023-09-09 11:32] LABS: BLOOD UREA NITROGEN 19 MG/DL (9-23); CALCIUM LEVEL 9.6 MG/DL (8.5-10.1); CARBON DIOXIDE LEVEL 29 MMOL/L (20-31); CHLORIDE LEVEL 101 MMOL/L (98-107); CREATININE FOR GFR 0.86 MG/DL (0.70-1.30); GLOMERULAR FILTRATION RATE > 60.0 (>56); GLUCOSE, FASTING 106 MG/DL (60-100); MAGNESIUM LEVEL 1.7 MG/DL (1.8-2.4); POTASSIUM SERUM 3.9 MMOL/L (3.5-5.1); SODIUM LEVEL 137 MMOL/L (136-145)
== END ==
LOC: M WUC 08:27
PROVIDERS: ATTEND Internal Medicine Cardiovascular Disease
DX: I48.0 Paroxysmal atrial fibrillation (principal); I11.9 Hypertensive heart disease without heart failure; E87.6 Hypokalemia

== ENCOUNTER → 2023-10-08 | Outpatient (CLI) | payer OTHER | LOC: M WUC 08:23 | PROVIDERS: ATTEND Nurse Practitioner Adult Health | DX: R07.81 Pleurodynia (principal); Z95.828 Presence of other vascular implants and grafts ==

== ENCOUNTER → 2023-10-18 | Outpatient (CLI) | payer OTHER ==
[~2023-10-18] MED LIST changes: +DEXA4TA PO; +GASTROGRAFIN SOLUTION 30ML As Ordered ONE; +ISOVUE-370 76% 100ML VIAL As Ordered ONE
== END ==
LOC: M RAD 07:12
PROVIDERS: ATTEND Nurse Practitioner
DX: C34.90 Malignant neoplasm of unspecified part of unspecified bronchus or lung (principal); J47.9 Bronchiectasis, uncomplicated; K76.0 Fatty (change of) liver, not elsewhere classified; N28.1 Cyst of kidney, acquired; J84.10 Pulmonary fibrosis, unspecified
CPT/HCPCS: 71260; 74177; Q9963; Q9967

== ENCOUNTER → 2023-10-22 | Outpatient (CLI) | payer OTHER ==
[~2023-10-22] MED LIST changes: -ALBU8.5H; +ALBU8.5H INH; -CARV12.5; +CARV12.5 PO; -ELIQ5TAB; +ELIQ5TAB PO; +ENTR1TAB PO; +GABA-1171 PO; -GASTROGRAFIN SOLUTION 30ML As Ordered ONE; -ISOVUE-370 76% 100ML VIAL As Ordered ONE; +JARD1TAB PO; +POTA-298 PO
== END ==
LOC: M ONCR 08:19
PROVIDERS: ATTEND General Practice
DX: C79.31 Secondary malignant neoplasm of brain (principal); C34.32 Malignant neoplasm of lower lobe, left bronchus or lung; G62.9 Polyneuropathy, unspecified; Z92.3 Personal history of irradiation; Z92.21 Personal history of antineoplastic chemotherapy; F17.210 Nicotine dependence, cigarettes, uncomplicated; Z79.52 Long term (current) use of systemic steroids; Z79.899 Other long term (current) drug therapy; Z79.01 Long term (current) use of anticoagulants; Z71.2 Person consulting for explanation of examination or test findings

== ENCOUNTER → 2023-11-22 | Outpatient (CLI) | payer OTHER ==
[~2023-11-22] MED LIST changes: +PROHANCE 279.3MG/ML 15ML VIAL As Ordered ONE; +PROHANCE 279.3MG/ML 5ML VIAL As Ordered ONE
== END ==
LOC: M RAD 12:04
PROVIDERS: ATTEND General Practice
DX: C79.31 Secondary malignant neoplasm of brain (principal); G93.89 Other specified disorders of brain
CPT/HCPCS: 70553; A9576

== ENCOUNTER → 2023-11-30 | Outpatient (CLI) | payer OTHER ==
[~2023-11-30] MED LIST changes: +BUPR150T12 PO; -PROHANCE 279.3MG/ML 15ML VIAL As Ordered ONE; -PROHANCE 279.3MG/ML 5ML VIAL As Ordered ONE
== END ==
LOC: M ONCR 08:12
PROVIDERS: ATTEND General Practice
DX: C79.31 Secondary malignant neoplasm of brain (principal); C34.32 Malignant neoplasm of lower lobe, left bronchus or lung; F17.210 Nicotine dependence, cigarettes, uncomplicated; Z79.01 Long term (current) use of anticoagulants; Z79.899 Other long term (current) drug therapy; Z92.21 Personal history of antineoplastic chemotherapy; Z92.3 Personal history of irradiation

== ENCOUNTER → 2024-01-14 | Outpatient (CLI) | payer OTHER ==
[~2024-01-14] MED LIST changes: +FLOM0.4C39 PO; +GASTROGRAFIN SOLUTION 30ML As Ordered ONE; +ISOVUE-370 76% 100ML VIAL As Ordered ONE; +OXYC-517 PO
== END ==
LOC: M RAD 07:28
PROVIDERS: ATTEND Internal Medicine Medical Oncology
DX: C34.90 Malignant neoplasm of unspecified part of unspecified bronchus or lung (principal); N28.1 Cyst of kidney, acquired
CPT/HCPCS: 71260; 74177; Q9963; Q9967

== ENCOUNTER 2024-01-16 17:24 | Emergency (ER) | payer OTHER ==
[~2024-01-16] VITALS: Ht 198.1 cm; Wt 104.2 kg
[~2024-01-16 17:24] MED LIST changes: -FLOM0.4C39 PO; -GASTROGRAFIN SOLUTION 30ML As Ordered ONE; -ISOVUE-370 76% 100ML VIAL As Ordered ONE; -OXYC-517 PO
[2024-01-16] MEDS: PERCOCET 5MG/325MG TAB PO ONE (20:59)
[2024-01-16 21:14] LABS: BASO % 0.5 % (0.0-1.0); EOS # 0.2 10^3/uL (0.0-0.5); HEMATOCRIT 41.9 % (42.0-52.0); HEMOGLOBIN 15.1 g/dl (13.5-17.5); LYMPH # 1.3 10^3/uL (1.5-5.0); LYMPH % 16.4 % (24.0-44.0); MEAN CORPUSCULAR HEMOGLOBIN 31.1 pg (27.0-33.0); MEAN CORPUSCULAR VOLUME 86.4 fl (80.0-96.0); MONO # 0.7 10^3/uL (0.0-0.8); MONO % 8.6 % (2.0-8.0); NEUTROPHILS # 5.9 10^3/uL (1.5-8.5); NEUTROPHILS % 72.1 % (36.0-66.0); PLATELET COUNT, AUTOMATED 286 10^3/uL (150-450); RED BLOOD COUNT 4.85 10^6/uL (4.30-6.10); WHITE BLOOD COUNT 8.2 10^3/uL (4.0-10.0)
[2024-01-16 21:18] LABS: ERYTHROCYTE SEDIMENTATION RATE 40 mm/hr (0-20)
[2024-01-16 21:23] LABS: INR 1.1; PARTIAL THROMBOPLASTIN TIME 34.1 SECONDS (24.8-34.2); PROTHROMBIN TIME 13.9 SECONDS (12.5-14.5)
[2024-01-16 21:36] LABS: ALKALINE PHOSPHATASE 76 U/L (46-116); ALT/SGPT 19 U/L (7.0-40); AST/SGOT 12 U/L (<34); BILIRUBIN,DIRECT 0.3 MG/DL (<0.4); BILIRUBIN,TOTAL 0.7 MG/DL (0.3-1.2); BLOOD UREA NITROGEN 8 MG/DL (9-23); CALCIUM LEVEL 9.9 MG/DL (8.5-10.1); CARBON DIOXIDE LEVEL 26 MMOL/L (20-31); CHLORIDE LEVEL 88 MMOL/L (98-107); CREATININE FOR GFR 0.55 MG/DL (0.70-1.30); GLOMERULAR FILTRATION RATE > 60.0 (>56); GLUCOSE, FASTING 90 MG/DL (60-100); MAGNESIUM LEVEL 1.6 MG/DL (1.8-2.4); POTASSIUM SERUM 3.5 MMOL/L (3.5-5.1); SODIUM LEVEL 121 MMOL/L (136-145); TOTAL PROTEIN 7.7 G/DL (5.7-8.2)
[2024-01-16] MEDS: ONDANSETRON 4MG 2ML VIAL IV ONE (22:08)
[2024-01-16] MEDS: MAG SULF 1GM/100ML (MAG RUN) 1 GM in IV 1 EA IV ONE (22:53)
[2024-01-16] MEDS: NS 1,000 ML IV SCH (22:53)
[2024-01-17] MEDS ORDERED: NICOTINE POLACRILEX 2 MG GUM PO PRN (01:25)
[2024-01-17] MEDS: KCL 10MEQ/100ML SWI (KRUN) 10 MEQ in IV 1 EA IV ONE (02:56)
[2024-01-17] MEDS: PERCOCET 5MG/325MG TAB PO PRN (08:11)
[2024-01-17 09:29] VITALS: BP 128/88; TEMP 96; O2SAT 100
== END 2024-01-17 09:30 | disposition short-term general hospital (02) ==
LOC: M ED 17:24
DX: G83.4 Cauda equina syndrome (principal); M54.41 Lumbago with sciatica, right side; M51.86 Other intervertebral disc disorders, lumbar region; M51.36 Other intervertebral disc degeneration, lumbar region; C34.90 Malignant neoplasm of unspecified part of unspecified bronchus or lung; C71.9 Malignant neoplasm of brain, unspecified; I10 Essential (primary) hypertension; K21.9 Gastro-esophageal reflux disease without esophagitis; J44.9 Chronic obstructive pulmonary disease, unspecified; E78.5 Hyperlipidemia, unspecified; F17.200 Nicotine dependence, unspecified, uncomplicated; F12.10 Cannabis abuse, uncomplicated; Z86.79 Personal history of other diseases of the circulatory system; Z79.01 Long term (current) use of anticoagulants; Z79.899 Other long term (current) drug therapy
CPT/HCPCS: 72148; 80047; 80048; 80076; 83036; 83735; 85025; 85610; 85652; 85730; 86140; 96361; 96374; 96375; 99284; J2405; J3475

== ENCOUNTER 2024-01-28 09:16 | Outpatient (RCR) | payer OTHER ==
[2023-03-23 13:28] VITALS: BP 147/99; O2SAT 100
[2023-03-23 14:43] LABS: BASO # 0.1 10^3/uL (0.0-0.2); BASO % 0.6 % (0.0-1.0); EOS # 0.3 10^3/uL (0.0-0.5); EOS % 2.6 % (0.0-3.0); HEMATOCRIT 38.1 % (42.0-52.0); HEMOGLOBIN 13.5 g/dl (13.5-17.5); LYMPH # 3.7 10^3/uL (1.5-5.0); LYMPH % 28.4 % (24.0-44.0); MEAN CORPUSCULAR HEMOGLOBIN 29.7 pg (27.0-33.0); MEAN CORPUSCULAR HGB CONC 35.4 g/dl (32.0-36.5); MEAN CORPUSCULAR VOLUME 83.7 fl (80.0-96.0); MONO # 1.4 10^3/uL (0.0-0.8); MONO % 10.5 % (2.0-8.0); NEUTROPHILS # 7.5 10^3/uL (1.5-8.5); NEUTROPHILS % 57.3 % (36.0-66.0); PLATELET COUNT, AUTOMATED 405 10^3/uL (150-450); RED BLOOD COUNT 4.55 10^6/uL (4.30-6.10); WHITE BLOOD COUNT 13.1 10^3/uL (4.0-10.0)
[2023-03-23 14:53] LABS: INR 1.11
[2023-03-23 14:54] LABS: PARTIAL THROMBOPLASTIN TIME 34.5 SECONDS (24.8-34.2)
[2023-03-23 15:07] LABS: ALBUMIN 3.3 G/DL (3.2-5.2); ALKALINE PHOSPHATASE 81 U/L (46-116); ALT/SGPT 33 U/L (7.0-40); AST/SGOT 17 U/L (<34); BILIRUBIN,TOTAL 0.7 MG/DL (0.3-1.2); BLOOD UREA NITROGEN 11 MG/DL (9-23); CALCIUM LEVEL 9.3 MG/DL (8.5-10.1); CARBON DIOXIDE LEVEL 29 MMOL/L (20-31); CHLORIDE LEVEL 86 MMOL/L (98-107); CREATININE FOR GFR 0.59 MG/DL (0.70-1.30); GLOMERULAR FILTRATION RATE > 60.0 (>56); GLUCOSE, FASTING 108 MG/DL (60-100); POTASSIUM SERUM 3.9 MMOL/L (3.5-5.1); SODIUM LEVEL 122 MMOL/L (136-145); TOTAL PROTEIN 7.2 G/DL (5.7-8.2)
[2023-03-25 08:19] LABS: BASO % 0.4 % (0.0-1.0); EOS # 0.3 10^3/uL (0.0-0.5); EOS % 3.1 % (0.0-3.0); HEMATOCRIT 38.1 % (42.0-52.0); HEMOGLOBIN 13.5 g/dl (13.5-17.5); LYMPH # 1.9 10^3/uL (1.5-5.0); LYMPH % 20.1 % (24.0-44.0); MEAN CORPUSCULAR HEMOGLOBIN 29.5 pg (27.0-33.0); MEAN CORPUSCULAR HGB CONC 35.4 g/dl (32.0-36.5); MEAN CORPUSCULAR VOLUME 83.4 fl (80.0-96.0); MONO # 1.2 10^3/uL (0.0-0.8); NEUTROPHILS # 5.8 10^3/uL (1.5-8.5); NEUTROPHILS % 62.9 % (36.0-66.0); PLATELET COUNT, AUTOMATED 416 10^3/uL (150-450); RED BLOOD COUNT 4.57 10^6/uL (4.30-6.10); WHITE BLOOD COUNT 9.2 10^3/uL (4.0-10.0)
[2023-03-25 08:22] VITALS: BP 122/85; O2SAT 99
[2023-03-25 08:33] LABS: ALKALINE PHOSPHATASE 79 U/L (46-116); ALT/SGPT 35 U/L (7.0-40); AST/SGOT 19 U/L (<34); BILIRUBIN,TOTAL 0.7 MG/DL (0.3-1.2); BLOOD UREA NITROGEN 10 MG/DL (9-23); CALCIUM LEVEL 9.1 MG/DL (8.5-10.1); CARBON DIOXIDE LEVEL 29 MMOL/L (20-31); CHLORIDE LEVEL 87 MMOL/L (98-107); CREATININE FOR GFR 0.59 MG/DL (0.70-1.30); GLOMERULAR FILTRATION RATE > 60.0 (>56); GLUCOSE, FASTING 118 MG/DL (60-100); MAGNESIUM LEVEL 1.4 MG/DL (1.8-2.4); POTASSIUM SERUM 4.1 MMOL/L (3.5-5.1); SODIUM LEVEL 122 MMOL/L (136-145); TOTAL PROTEIN 6.9 G/DL (5.7-8.2)
[2023-03-25 08:36] LABS: HEPATITIS B SURFACE ANTIBODY NEGATIVE (POSITIVE)
[2023-03-25 08:48] LABS: HEPATITIS B SURFACE ANTIGEN NEGATIVE (NEGATIVE)
[2023-03-25 09:09] LABS: HEPATITIS B CORE ANTIBODY IGM NEGATIVE (NEGATIVE)
[2023-03-25] MEDS: NS (Normal Saline) 0.9% 1,000 ML IV SCH ×2 (09:24→14:13)
[2023-03-25] MEDS: MAG SULF 1GM/100ML (MAG RUN) 100 ML IV SCH (09:24)
[2023-03-25] MEDS: FOSAPREPITANT 150 MG in NS 245 ML IV SCH (09:25)
[2023-03-25] MEDS: PALONOSETRON 0.25MG/5ML VIAL (ALOXI) IV SCH (09:25)
[2023-03-25] MEDS: MANNITOL IV SCH (10:37)
[2023-03-25] MEDS: NS B BRAUN IV SCH ×2 (10:38→13:03)
[2023-03-25] MEDS: CISPLATIN IV SCH (10:38)
[2023-03-25] MEDS: ETOPOSIDE IV SCH (13:03)
[2023-03-25] MEDS: SODIUM CHLORIDE 0.9% INJ 10 ML SYR IV PRN (15:30)
[2023-03-26 12:00] VITALS: BP 146/84; O2SAT 98
[2023-03-26] MEDS: dexAMETHasone 4 MG TAB PO SCH (12:20)
[2023-03-26] MEDS: PROCHLORPERAZINE 5MG TAB PO SCH (12:21)
[2023-03-26] MEDS: NS B BRAUN IV SCH (12:57)
[2023-03-26] MEDS: ETOPOSIDE IV SCH (12:57)
[2023-03-29 12:30] VITALS: BP 103/75; O2SAT 100
[2023-03-29] MEDS: PROCHLORPERAZINE 5MG TAB PO SCH (13:12)
[2023-03-29] MEDS: dexAMETHasone 4 MG TAB PO SCH (13:12)
[2023-03-29] MEDS: ETOPOSIDE IV SCH (13:52)
[2023-03-29] MEDS: NS B BRAUN IV SCH (13:52)
[2023-03-29] MEDS: SODIUM CHLORIDE 0.9% INJ 10 ML SYR IV PRN (14:59)
[2023-04-16 08:49] LABS: BASO % 0.5 % (0.0-1.0); EOS # 0.1 10^3/uL (0.0-0.5); EOS % 0.8 % (0.0-3.0); HEMOGLOBIN 12.3 g/dl (13.5-17.5); LYMPH # 1.8 10^3/uL (1.5-5.0); LYMPH % 21.7 % (24.0-44.0); MEAN CORPUSCULAR HEMOGLOBIN 29.7 pg (27.0-33.0); MEAN CORPUSCULAR HGB CONC 34.2 g/dl (32.0-36.5); MONO # 0.9 10^3/uL (0.0-0.8); MONO % 10.8 % (2.0-8.0); NEUTROPHILS # 5.3 10^3/uL (1.5-8.5); NEUTROPHILS % 63.8 % (36.0-66.0); PLATELET COUNT, AUTOMATED 364 10^3/uL (150-450); RED BLOOD COUNT 4.14 10^6/uL (4.30-6.10); WHITE BLOOD COUNT 8.3 10^3/uL (4.0-10.0)
[2023-04-16 09:11] VITALS: BP 129/89; O2SAT 98
[2023-04-16 09:13] LABS: ALBUMIN 3.2 G/DL (3.2-5.2); ALKALINE PHOSPHATASE 87 U/L (46-116); ALT/SGPT 21 U/L (7.0-40); AST/SGOT 10 U/L (<34); BILIRUBIN,TOTAL 0.4 MG/DL (0.3-1.2); BLOOD UREA NITROGEN 11 MG/DL (9-23); CALCIUM LEVEL 9.1 MG/DL (8.5-10.1); CARBON DIOXIDE LEVEL 31 MMOL/L (20-31); CHLORIDE LEVEL 98 MMOL/L (98-107); CREATININE FOR GFR 0.65 MG/DL (0.70-1.30); GLOMERULAR FILTRATION RATE > 60.0 (>56); GLUCOSE, FASTING 98 MG/DL (60-100); MAGNESIUM LEVEL 1.4 MG/DL (1.8-2.4); POTASSIUM SERUM 3.8 MMOL/L (3.5-5.1); SODIUM LEVEL 136 MMOL/L (136-145); TOTAL PROTEIN 7.2 G/DL (5.7-8.2)
[2023-04-19 08:45] VITALS: BP 130/87; O2SAT 98
[2023-04-19] MEDS: MAGNESIUM SULFATE IV ONE ×2 (09:27→15:43)
[2023-04-19] MEDS: NS B BRAUN IV ONE ×2 (09:27→15:43)
[2023-04-19] MEDS: PALONOSETRON 0.25MG/5ML VIAL (ALOXI) IV SCH (11:26)
[2023-04-19] MEDS: FOSAPREPITANT 150 MG in NS 245 ML IV SCH (11:27)
[2023-04-19] MEDS: MANNITOL IV SCH (12:11)
[2023-04-19] MEDS: NS B BRAUN IV SCH ×2 (12:13→14:25)
[2023-04-19] MEDS: CISPLATIN IV SCH (12:13)
[2023-04-19] MEDS: ETOPOSIDE IV SCH (14:25)
[2023-04-19] MEDS: SODIUM CHLORIDE 0.9% INJ 10 ML SYR IV PRN (17:44)
[2023-04-20 08:55] VITALS: BP 131/85; O2SAT 98
[2023-04-20] MEDS: PROCHLORPERAZINE 5MG TAB PO SCH (09:11)
[2023-04-20] MEDS: dexAMETHasone 4 MG TAB PO SCH (09:11)
[2023-04-20] MEDS: NS B BRAUN IV SCH (10:21)
[2023-04-20] MEDS: ETOPOSIDE IV SCH (10:21)
[2023-04-20] MEDS: SODIUM CHLORIDE 0.9% INJ 10 ML SYR IV PRN (11:28)
[2023-04-21 09:04] VITALS: BP 149/95; O2SAT 98
[2023-04-21] MEDS: dexAMETHasone 4 MG TAB PO SCH (09:14)
[2023-04-21] MEDS: PROCHLORPERAZINE 5MG TAB PO SCH (09:15)
[2023-04-21] MEDS: ETOPOSIDE IV SCH (10:08)
[2023-04-21] MEDS: NS B BRAUN IV SCH (10:08)
[2023-05-11 09:05] VITALS: BP 142/94; O2SAT 98
[2023-05-11 09:17] LABS: BASO % 0.4 % (0.0-1.0); EOS # 0.1 10^3/uL (0.0-0.5); EOS % 1.5 % (0.0-3.0); HEMATOCRIT 33.5 % (42.0-52.0); HEMOGLOBIN 11.5 g/dl (13.5-17.5); MEAN CORPUSCULAR HEMOGLOBIN 30.3 pg (27.0-33.0); MEAN CORPUSCULAR HGB CONC 34.3 g/dl (32.0-36.5); MEAN CORPUSCULAR VOLUME 88.4 fl (80.0-96.0); MONO # 1.1 10^3/uL (0.0-0.8); MONO % 13.1 % (2.0-8.0); NEUTROPHILS # 5.6 10^3/uL (1.5-8.5); PLATELET COUNT, AUTOMATED 343 10^3/uL (150-450); RED BLOOD COUNT 3.79 10^6/uL (4.30-6.10)
[2023-05-11 09:21] LABS: ALBUMIN 3.4 G/DL (3.2-5.2); ALKALINE PHOSPHATASE 84 U/L (46-116); ALT/SGPT 18 U/L (7.0-40); AST/SGOT 15 U/L (<34); BILIRUBIN,TOTAL 0.3 MG/DL (0.3-1.2); BLOOD UREA NITROGEN 7 MG/DL (9-23); CALCIUM LEVEL 9.2 MG/DL (8.5-10.1); CARBON DIOXIDE LEVEL 32 MMOL/L (20-31); CHLORIDE LEVEL 98 MMOL/L (98-107); CREATININE FOR GFR 0.57 MG/DL (0.70-1.30); GLOMERULAR FILTRATION RATE > 60.0 (>56); GLUCOSE, FASTING 101 MG/DL (60-100); POTASSIUM SERUM 3.6 MMOL/L (3.5-5.1); SODIUM LEVEL 135 MMOL/L (136-145); TOTAL PROTEIN 7.5 G/DL (5.7-8.2)
[2023-05-12 07:35] VITALS: BP 118/79; O2SAT 97
[2023-05-12] MEDS: MAG SULF 1GM/100ML (MAG RUN) 100 ML IV SCH (07:48)
[2023-05-12] MEDS: NS (Normal Saline) 0.9% 1,000 ML IV SCH ×2 (07:50→14:31)
[2023-05-12] MEDS: PALONOSETRON 0.25MG/5ML VIAL (ALOXI) IV SCH (08:43)
[2023-05-12] MEDS: FOSAPREPITANT 150 MG in NS 245 ML IV SCH (08:44)
[2023-05-12] MEDS: MANNITOL IV SCH (10:19)
[2023-05-12] MEDS: NS B BRAUN IV SCH ×2 (10:24→13:12)
[2023-05-12] MEDS: CISPLATIN IV SCH (10:24)
[2023-05-12] MEDS: ETOPOSIDE IV SCH (13:12)
[2023-05-12] MEDS: SODIUM CHLORIDE 0.9% INJ 10 ML SYR IV PRN (15:38)
[2023-05-13 08:27] VITALS: BP 150/94; O2SAT 99
[2023-05-13] MEDS: dexAMETHasone 4 MG TAB PO SCH (08:33)
[2023-05-13] MEDS: PROCHLORPERAZINE 5MG TAB PO SCH (08:33)
[2023-05-13] MEDS: NS B BRAUN IV SCH (09:40)
[2023-05-13] MEDS: ETOPOSIDE IV SCH (09:40)
[2023-05-13] MEDS: SODIUM CHLORIDE 0.9% INJ 10 ML SYR IV PRN (10:55)
[2023-05-14 08:20] VITALS: BP 149/93; O2SAT 99
[2023-05-14] MEDS: PROCHLORPERAZINE 5MG TAB PO SCH (08:51)
[2023-05-14] MEDS: dexAMETHasone 4 MG TAB PO SCH (08:51)
[2023-05-14] MEDS: ETOPOSIDE IV SCH (09:40)
[2023-05-14] MEDS: NS B BRAUN IV SCH (09:40)
[2023-06-01 08:54] VITALS: BP 136/91; O2SAT 99
[2023-06-01 09:05] LABS: BASO % 0.6 % (0.0-1.0); EOS # 0.1 10^3/uL (0.0-0.5); EOS % 1.7 % (0.0-3.0); HEMATOCRIT 27.2 % (42.0-52.0); HEMOGLOBIN 9.4 g/dl (13.5-17.5); LYMPH # 1.1 10^3/uL (1.5-5.0); LYMPH % 22.6 % (24.0-44.0); MEAN CORPUSCULAR HEMOGLOBIN 31.8 pg (27.0-33.0); MEAN CORPUSCULAR HGB CONC 34.6 g/dl (32.0-36.5); MEAN CORPUSCULAR VOLUME 91.9 fl (80.0-96.0); MONO # 0.8 10^3/uL (0.0-0.8); MONO % 16.4 % (2.0-8.0); NEUTROPHILS # 2.7 10^3/uL (1.5-8.5); NEUTROPHILS % 55.2 % (36.0-66.0); PLATELET COUNT, AUTOMATED 296 10^3/uL (150-450); RED BLOOD COUNT 2.96 10^6/uL (4.30-6.10); WHITE BLOOD COUNT 4.8 10^3/uL (4.0-10.0)
[2023-06-01 09:32] LABS: ALBUMIN 3.2 G/DL (3.2-5.2); ALKALINE PHOSPHATASE 70 U/L (46-116); ALT/SGPT 19 U/L (7.0-40); AST/SGOT 12 U/L (<34); BILIRUBIN,TOTAL 0.3 MG/DL (0.3-1.2); BLOOD UREA NITROGEN 9 MG/DL (9-23); CALCIUM LEVEL 8.8 MG/DL (8.5-10.1); CARBON DIOXIDE LEVEL 31 MMOL/L (20-31); CHLORIDE LEVEL 101 MMOL/L (98-107); GLOMERULAR FILTRATION RATE > 60.0 (>56); GLUCOSE, FASTING 132 MG/DL (60-100); MAGNESIUM LEVEL 1.1 MG/DL (1.8-2.4); POTASSIUM SERUM 3.6 MMOL/L (3.5-5.1); SODIUM LEVEL 137 MMOL/L (136-145); TOTAL PROTEIN 6.8 G/DL (5.7-8.2)
[2023-06-02 08:05] VITALS: BP 143/95; O2SAT 99
[2023-06-02] MEDS: MAGNESIUM SULFATE IV ONE ×2 (08:13→14:38)
[2023-06-02] MEDS: NS B BRAUN IV ONE ×2 (08:13→14:38)
[2023-06-02] MEDS: FAMOTIDINE 20MG/2ML VIAL IV ONE (09:23)
[2023-06-02] MEDS: FOSAPREPITANT 150 MG in NS 245 ML IV SCH (09:23)
[2023-06-02] MEDS: PALONOSETRON 0.25MG/5ML VIAL (ALOXI) IV SCH (10:37)
[2023-06-02] MEDS: MANNITOL IV SCH (11:14)
[2023-06-02] MEDS: CISPLATIN IV SCH (11:20)
[2023-06-02] MEDS: NS B BRAUN IV SCH ×2 (11:20→13:30)
[2023-06-02] MEDS: ETOPOSIDE IV SCH (13:30)
[2023-06-02] MEDS: SODIUM CHLORIDE 0.9% INJ 10 ML SYR IV PRN (16:55)
[2023-06-03] MEDS: dexAMETHasone 4 MG TAB PO SCH (08:14)
[2023-06-03] MEDS: PROCHLORPERAZINE 5MG TAB PO SCH (08:14)
[2023-06-03 08:47] VITALS: BP 131/88; O2SAT 100
[2023-06-03] MEDS: NS B BRAUN IV SCH (09:26)
[2023-06-03] MEDS: ETOPOSIDE IV SCH (09:26)
[2023-06-04] MEDS: PROCHLORPERAZINE 5MG TAB PO SCH (08:51)
[2023-06-04] MEDS: dexAMETHasone 4 MG TAB PO SCH (08:51)
[2023-06-04 09:20] VITALS: BP 120/74; O2SAT 100
[2023-06-04] MEDS: ETOPOSIDE IV SCH (09:38)
[2023-06-04] MEDS: NS B BRAUN IV SCH (09:38)
[2023-06-15 11:40] VITALS: BP 141/95; O2SAT 100
[2023-06-15 12:13] LABS: ALBUMIN 3.1 G/DL (3.2-5.2); ALKALINE PHOSPHATASE 70 U/L (46-116); ALT/SGPT 12 U/L (7.0-40); AST/SGOT 8 U/L (<34); BILIRUBIN,TOTAL 0.3 MG/DL (0.3-1.2); BLOOD UREA NITROGEN 13 MG/DL (9-23); CALCIUM LEVEL 8.2 MG/DL (8.5-10.1); CARBON DIOXIDE LEVEL 30 MMOL/L (20-31); CHLORIDE LEVEL 99 MMOL/L (98-107); CREATININE FOR GFR 0.58 MG/DL (0.70-1.30); GLOMERULAR FILTRATION RATE > 60.0 (>56); GLUCOSE, FASTING 123 MG/DL (60-100); POTASSIUM SERUM 3.5 MMOL/L (3.5-5.1); SODIUM LEVEL 134 MMOL/L (136-145); TOTAL PROTEIN 6.5 G/DL (5.7-8.2)
[2023-06-15 14:15] LABS: BASO % 1.3 % (0.0-1.0); EOS % 0.6 % (0.0-3.0); HEMATOCRIT 22.4 % (42.0-52.0); HEMOGLOBIN 7.8 g/dl (13.5-17.5); LYMPH % 59.4 % (24.0-44.0); MEAN CORPUSCULAR HEMOGLOBIN 32.8 pg (27.0-33.0); MEAN CORPUSCULAR HGB CONC 34.8 g/dl (32.0-36.5); MEAN CORPUSCULAR VOLUME 94.1 fl (80.0-96.0); MONO # 0.2 10^3/uL (0.0-0.8); MONO % 13.1 % (2.0-8.0); NEUTROPHILS % 24.3 % (36.0-66.0); PLATELET COUNT, AUTOMATED 106 10^3/uL (150-450); RED BLOOD COUNT 2.38 10^6/uL (4.30-6.10); WHITE BLOOD COUNT 1.6 10^3/uL (4.0-10.0)
[2023-06-15 14:16] LABS: NEUTROPHILS # 0.4 10^3/uL (1.5-8.5)
[2023-06-16 07:50] VITALS: BP 124/86; O2SAT 100
[2023-06-16] MEDS: NS B BRAUN IV ONE (08:25)
[2023-06-16] MEDS: MAGNESIUM SULFATE IV ONE (08:25)
[2023-06-16] MEDS: SODIUM CHLORIDE 0.9% INJ 10 ML SYR IV PRN (12:46)
[2023-06-29 09:56] LABS: ALBUMIN 3.4 G/DL (3.2-5.2); ALKALINE PHOSPHATASE 76 U/L (46-116); ALT/SGPT 9 U/L (7.0-40); AST/SGOT < 8 U/L (<34); BILIRUBIN,TOTAL 0.4 MG/DL (0.3-1.2); BLOOD UREA NITROGEN 9 MG/DL (9-23); CALCIUM LEVEL 9.1 MG/DL (8.5-10.1); CARBON DIOXIDE LEVEL 29 MMOL/L (20-31); CHLORIDE LEVEL 97 MMOL/L (98-107); CREATININE FOR GFR 0.65 MG/DL (0.70-1.30); GLOMERULAR FILTRATION RATE > 60.0 (>56); GLUCOSE, FASTING 108 MG/DL (60-100); MAGNESIUM LEVEL 1.2 MG/DL (1.8-2.4); POTASSIUM SERUM 3.9 MMOL/L (3.5-5.1); SODIUM LEVEL 132 MMOL/L (136-145); TOTAL PROTEIN 6.9 G/DL (5.7-8.2)
[2023-06-29] MEDS: SODIUM CHLORIDE 0.9% INJ 10 ML SYR IV PRN (10:53)
[2023-08-09 12:21] LABS: BASO # 0.1 10^3/uL (0.0-0.2); BASO % 0.6 % (0.0-1.0); EOS # 0.4 10^3/uL (0.0-0.5); EOS % 4.8 % (0.0-3.0); HEMATOCRIT 36.4 % (42.0-52.0); HEMOGLOBIN 12.1 g/dl (13.5-17.5); LYMPH # 2.1 10^3/uL (1.5-5.0); LYMPH % 26.4 % (24.0-44.0); MEAN CORPUSCULAR HEMOGLOBIN 31.2 pg (27.0-33.0); MEAN CORPUSCULAR HGB CONC 33.2 g/dl (32.0-36.5); MEAN CORPUSCULAR VOLUME 93.8 fl (80.0-96.0); MONO # 0.6 10^3/uL (0.0-0.8); NEUTROPHILS # 4.7 10^3/uL (1.5-8.5); NEUTROPHILS % 59.8 % (36.0-66.0); PLATELET COUNT, AUTOMATED 283 10^3/uL (150-450); RED BLOOD COUNT 3.88 10^6/uL (4.30-6.10); WHITE BLOOD COUNT 7.9 10^3/uL (4.0-10.0)
[2023-08-09 12:38] LABS: ALBUMIN 3.7 G/DL (3.2-5.2); ALKALINE PHOSPHATASE 65 U/L (46-116); ALT/SGPT 15 U/L (7.0-40); AST/SGOT 15 U/L (<34); BILIRUBIN,TOTAL 0.2 MG/DL (0.3-1.2); BLOOD UREA NITROGEN 11 MG/DL (9-23); CALCIUM LEVEL 9.5 MG/DL (8.5-10.1); CARBON DIOXIDE LEVEL 29 MMOL/L (20-31); CHLORIDE LEVEL 103 MMOL/L (98-107); CREATININE FOR GFR 0.68 MG/DL (0.70-1.30); GLOMERULAR FILTRATION RATE > 60.0 (>56); GLUCOSE, FASTING 91 MG/DL (60-100); POTASSIUM SERUM 3.5 MMOL/L (3.5-5.1); SODIUM LEVEL 136 MMOL/L (136-145); TOTAL PROTEIN 7.3 G/DL (5.7-8.2)
[2023-08-10 11:17] VITALS: BP 162/95; O2SAT 98
[2023-09-10] MEDS: SODIUM CHLORIDE 0.9% INJ 10 ML SYR IV PRN (08:12)
[2023-09-10 08:22] LABS: BASO # 0.1 10^3/uL (0.0-0.2); BASO % 0.6 % (0.0-1.0); EOS # 0.3 10^3/uL (0.0-0.5); EOS % 3.1 % (0.0-3.0); HEMATOCRIT 42.6 % (42.0-52.0); LYMPH # 1.5 10^3/uL (1.5-5.0); LYMPH % 15.1 % (24.0-44.0); MEAN CORPUSCULAR HEMOGLOBIN 30.3 pg (27.0-33.0); MEAN CORPUSCULAR HGB CONC 32.9 g/dl (32.0-36.5); MEAN CORPUSCULAR VOLUME 92.2 fl (80.0-96.0); MONO # 0.8 10^3/uL (0.0-0.8); MONO % 8.5 % (2.0-8.0); NEUTROPHILS % 72.3 % (36.0-66.0); PLATELET COUNT, AUTOMATED 249 10^3/uL (150-450); RED BLOOD COUNT 4.62 10^6/uL (4.30-6.10); WHITE BLOOD COUNT 9.7 10^3/uL (4.0-10.0)
[2023-09-10 08:54] LABS: ALBUMIN 3.4 G/DL (3.2-5.2); ALKALINE PHOSPHATASE 77 U/L (46-116); ALT/SGPT 10 U/L (7.0-40); AST/SGOT 8 U/L (<34); BILIRUBIN,TOTAL 0.2 MG/DL (0.3-1.2); BLOOD UREA NITROGEN 16 MG/DL (9-23); CALCIUM LEVEL 9.3 MG/DL (8.5-10.1); CARBON DIOXIDE LEVEL 27 MMOL/L (20-31); CHLORIDE LEVEL 105 MMOL/L (98-107); CREATININE FOR GFR 0.78 MG/DL (0.70-1.30); GLOMERULAR FILTRATION RATE > 60.0 (>56); GLUCOSE, FASTING 129 MG/DL (60-100); POTASSIUM SERUM 3.7 MMOL/L (3.5-5.1); SODIUM LEVEL 139 MMOL/L (136-145); TOTAL PROTEIN 7.7 G/DL (5.7-8.2)
[2023-09-13 08:10] VITALS: BP_DIAS 94; O2SAT 98
[2023-10-22] MEDS: SODIUM CHLORIDE 0.9% INJ 10 ML SYR IV PRN (08:14)
[2023-10-22 08:25] LABS: BASO % 0.3 % (0.0-1.0); EOS # 0.4 10^3/uL (0.0-0.5); EOS % 4.2 % (0.0-3.0); HEMATOCRIT 42.8 % (42.0-52.0); HEMOGLOBIN 14.7 g/dl (13.5-17.5); LYMPH # 1.6 10^3/uL (1.5-5.0); MEAN CORPUSCULAR HEMOGLOBIN 30.8 pg (27.0-33.0); MEAN CORPUSCULAR HGB CONC 34.3 g/dl (32.0-36.5); MEAN CORPUSCULAR VOLUME 89.5 fl (80.0-96.0); MONO # 0.8 10^3/uL (0.0-0.8); MONO % 8.5 % (2.0-8.0); NEUTROPHILS # 6.9 10^3/uL (1.5-8.5); NEUTROPHILS % 70.3 % (36.0-66.0); PLATELET COUNT, AUTOMATED 218 10^3/uL (150-450); RED BLOOD COUNT 4.78 10^6/uL (4.30-6.10); WHITE BLOOD COUNT 9.8 10^3/uL (4.0-10.0)
[2023-10-22 09:01] LABS: ALBUMIN 3.6 G/DL (3.2-5.2); ALKALINE PHOSPHATASE 74 U/L (46-116); ALT/SGPT 19 U/L (7.0-40); AST/SGOT 8 U/L (<34); BILIRUBIN,TOTAL 0.6 MG/DL (0.3-1.2); BLOOD UREA NITROGEN 12 MG/DL (9-23); CALCIUM LEVEL 8.8 MG/DL (8.5-10.1); CARBON DIOXIDE LEVEL 30 MMOL/L (20-31); CHLORIDE LEVEL 101 MMOL/L (98-107); GLOMERULAR FILTRATION RATE > 60.0 (>56); GLUCOSE, FASTING 101 MG/DL (60-100); POTASSIUM SERUM 3.8 MMOL/L (3.5-5.1); SODIUM LEVEL 136 MMOL/L (136-145); TOTAL PROTEIN 6.8 G/DL (5.7-8.2)
[2023-10-25 08:18] VITALS: BP 128/94; O2SAT 97
[2023-12-06] MEDS: SODIUM CHLORIDE 0.9% INJ 10 ML SYR IV PRN (07:56)
[2023-12-06 08:14] LABS: BASO # 0.1 10^3/uL (0.0-0.2); BASO % 0.7 % (0.0-1.0); EOS # 0.2 10^3/uL (0.0-0.5); EOS % 3.2 % (0.0-3.0); HEMATOCRIT 37.4 % (42.0-52.0); HEMOGLOBIN 12.7 g/dl (13.5-17.5); LYMPH # 1.2 10^3/uL (1.5-5.0); LYMPH % 17.8 % (24.0-44.0); MEAN CORPUSCULAR HEMOGLOBIN 31.1 pg (27.0-33.0); MEAN CORPUSCULAR VOLUME 91.4 fl (80.0-96.0); MONO # 0.7 10^3/uL (0.0-0.8); MONO % 9.9 % (2.0-8.0); NEUTROPHILS # 4.7 10^3/uL (1.5-8.5); PLATELET COUNT, AUTOMATED 261 10^3/uL (150-450); RED BLOOD COUNT 4.09 10^6/uL (4.30-6.10); WHITE BLOOD COUNT 6.9 10^3/uL (4.0-10.0)
[2023-12-06 08:48] LABS: ALBUMIN 3.6 G/DL (3.2-5.2); ALKALINE PHOSPHATASE 60 U/L (46-116); ALT/SGPT 15 U/L (7.0-40); AST/SGOT 13 U/L (<34); BILIRUBIN,TOTAL 0.7 MG/DL (0.3-1.2); BLOOD UREA NITROGEN 8 MG/DL (9-23); CALCIUM LEVEL 9.3 MG/DL (8.5-10.1); CARBON DIOXIDE LEVEL 28 MMOL/L (20-31); CHLORIDE LEVEL 100 MMOL/L (98-107); CREATININE FOR GFR 0.63 MG/DL (0.70-1.30); GLOMERULAR FILTRATION RATE > 60.0 (>56); GLUCOSE, FASTING 118 MG/DL (60-100); POTASSIUM SERUM 3.4 MMOL/L (3.5-5.1); SODIUM LEVEL 134 MMOL/L (136-145); TOTAL PROTEIN 7.2 G/DL (5.7-8.2)
[2023-12-07 08:23] VITALS: BP 132/88; O2SAT 98
[2024-01-27] MEDS: SODIUM CHLORIDE 0.9% INJ 10 ML SYR IV PRN (07:49)
[2024-01-27 07:59] LABS: BASO # 0.1 10^3/uL (0.0-0.2); BASO % 0.7 % (0.0-1.0); HEMATOCRIT 42.4 % (42.0-52.0); HEMOGLOBIN 14.7 g/dl (13.5-17.5); LYMPH # 0.3 10^3/uL (1.5-5.0); LYMPH % 2.7 % (24.0-44.0); MEAN CORPUSCULAR HEMOGLOBIN 31.3 pg (27.0-33.0); MEAN CORPUSCULAR HGB CONC 34.7 g/dl (32.0-36.5); MEAN CORPUSCULAR VOLUME 90.2 fl (80.0-96.0); MONO # 0.6 10^3/uL (0.0-0.8); NEUTROPHILS # 8.4 10^3/uL (1.5-8.5); NEUTROPHILS % 88.7 % (36.0-66.0); PLATELET COUNT, AUTOMATED 207 10^3/uL (150-450); WHITE BLOOD COUNT 9.4 10^3/uL (4.0-10.0)
[2024-01-27 08:25] LABS: ALBUMIN 3.6 G/DL (3.2-5.2); ALKALINE PHOSPHATASE 71 U/L (46-116); ALT/SGPT 26 U/L (7.0-40); AST/SGOT 9 U/L (<34); BILIRUBIN,TOTAL 0.9 MG/DL (0.3-1.2); BLOOD UREA NITROGEN 21 MG/DL (9-23); CALCIUM LEVEL 9.4 MG/DL (8.5-10.1); CARBON DIOXIDE LEVEL 26 MMOL/L (20-31); CHLORIDE LEVEL 97 MMOL/L (98-107); CREATININE FOR GFR 0.56 MG/DL (0.70-1.30); GLOMERULAR FILTRATION RATE > 60.0 (>56); GLUCOSE, FASTING 140 MG/DL (60-100); SODIUM LEVEL 128 MMOL/L (136-145); TOTAL PROTEIN 6.8 G/DL (5.7-8.2)
[~2024-01-28] VITALS: Ht 198.1 cm; Wt 99.4 kg
[~2024-01-28 09:16] MED LIST changes: +MAG SULF 1GM/100ML (MAG RUN) 100 ML IV SCH; +MAGNESIUM SULFATE IV ONE; +NS (Normal Saline) 0.9% 1,000 ML IV SCH; +NS B BRAUN IV ONE; +OXYC-517 PO; +PROCHLORPERAZINE 5MG TAB PO SCH; +SODIUM CHLORIDE 0.9% INJ 10 ML SYR IV PRN; +dexAMETHasone 4 MG TAB PO SCH
[2024-01-28] MEDS ORDERED: FLOM0.4C39 PO (09:19)
[2024-01-28 09:28] VITALS: BP 145/95; O2SAT 99
[2024-02-03] MEDS ORDERED: OXYC5SOL11 PO ×2 (09:28)
[2024-02-22] MEDS ORDERED: MAGN64TASA PO (20:18)
[2024-03-13] MEDS ORDERED: LACT20EL PO (10:08)
[2024-03-13] MEDS ORDERED: HYOS125TA PO (10:08)
[2024-03-13] MEDS ORDERED: ONDA-282 PO (10:08)
[2024-03-13] MEDS ORDERED: ATIV1TAB10 PO ×2 (10:08→12:46)
[2024-03-13] MEDS ORDERED: MOM30SS2 PO (10:08)
[2024-03-13] MEDS ORDERED: BISA10SU PR (10:08)
[2024-03-13] MEDS ORDERED: ATIV1TAB7 PO (10:08)
[2024-03-13] MEDS ORDERED: NYST-38 SS (10:08)
[2024-03-13] MEDS ORDERED: MORP1SOL SL (10:08)
[2024-03-13] MEDS ORDERED: MYLASSUD PO (10:08)
[2024-03-13] MEDS ORDERED: PANT40TA29 PO (10:08)
[2024-03-13] MEDS ORDERED: CALC200T15 PO (10:08)
[2024-03-13] MEDS ORDERED: MORP1SOL5 PO (12:46)
== END 2024-05-06 | disposition expired ==
LOC: M ONCM 09:16
PROVIDERS: ATTEND Internal Medicine Medical Oncology
DX: C34.32 Malignant neoplasm of lower lobe, left bronchus or lung (principal); C77.1 Secondary and unspecified malignant neoplasm of intrathoracic lymph nodes; G95.89 Other specified diseases of spinal cord; G62.0 Drug-induced polyneuropathy; I10 Essential (primary) hypertension; I48.91 Unspecified atrial fibrillation; Z79.82 Long term (current) use of aspirin; Z79.899 Other long term (current) drug therapy; F17.210 Nicotine dependence, cigarettes, uncomplicated; R42 Dizziness and giddiness; H91.90 Unspecified hearing loss, unspecified ear; R53.83 Other fatigue; R63.8 Other symptoms and signs concerning food and fluid intake; K21.9 Gastro-esophageal reflux disease without esophagitis
CPT/HCPCS: 36415; 36591; 80053; 83735; 85025; 85610; 85730; 86705; 86706; 87340; 96365; 96366; 96367; 96368; 96375; 96413; 96415; 96417; G0463; J1100; J1453; J1642; J2469; J3475; J3490; J9060; J9181; S0028

== ENCOUNTER 2024-01-28 16:25 | Outpatient (RCR) | payer OTHER ==
[~2024-01-28 16:25] MED LIST changes: +FLOM0.4C39 PO; -MAG SULF 1GM/100ML (MAG RUN) 100 ML IV SCH; -MAGNESIUM SULFATE IV ONE; -NS (Normal Saline) 0.9% 1,000 ML IV SCH; -NS B BRAUN IV ONE; -PROCHLORPERAZINE 5MG TAB PO SCH; -SODIUM CHLORIDE 0.9% INJ 10 ML SYR IV PRN; -dexAMETHasone 4 MG TAB PO SCH
[2024-02-03] MEDS ORDERED: OXYC5SOL11 PO ×2 (09:28)
== END 2024-02-07 | disposition home or self-care (01) ==
LOC: M ONCR 16:25
PROVIDERS: ATTEND General Practice
DX: Z51.0 Encounter for antineoplastic radiation therapy (principal); C79.40 Secondary malignant neoplasm of unspecified part of nervous system

== ENCOUNTER → 2024-02-11 | Outpatient (CLI) | payer OTHER ==
[~2024-02-11] MED LIST changes: +OXYC5SOL11 PO
== END ==
LOC: M ONCR 13:21
PROVIDERS: ATTEND General Practice
DX: C34.32 Malignant neoplasm of lower lobe, left bronchus or lung (principal); C79.31 Secondary malignant neoplasm of brain; R20.0 Anesthesia of skin; Z92.3 Personal history of irradiation

== ENCOUNTER 2024-02-22 11:07 | Inpatient (IN) | payer OTHER ==
[~2024-02-22] VITALS: Ht 198.1 cm; Wt 106.2 kg
[2024-02-22] MEDS: LIDOCAINE 2% 5ML JELLY UROJET TOP ONE (15:38)
[2024-02-22 16:19] LABS: HEMOGLOBIN 15.3 g/dl (13.5-17.5); LYMPH # 0.3 10^3/uL (1.5-5.0); LYMPH % 8.9 % (24.0-44.0); MEAN CORPUSCULAR HEMOGLOBIN 30.9 pg (27.0-33.0); MEAN CORPUSCULAR HGB CONC 36.4 g/dl (32.0-36.5); MEAN CORPUSCULAR VOLUME 84.8 fl (80.0-96.0); MONO # 0.2 10^3/uL (0.0-0.8); MONO % 5.5 % (2.0-8.0); NEUTROPHILS # 2.7 10^3/uL (1.5-8.5); NEUTROPHILS % 82.2 % (36.0-66.0); RED BLOOD COUNT 4.95 10^6/uL (4.30-6.10); WHITE BLOOD COUNT 3.3 10^3/uL (4.0-10.0)
[2024-02-22 16:21] LABS: PLATELET COUNT, AUTOMATED 51 10^3/uL (150-450)
[2024-02-22 17:21] LABS: BLOOD UREA NITROGEN 23 MG/DL (9-23); CALCIUM LEVEL 9.2 MG/DL (8.5-10.1); CARBON DIOXIDE LEVEL 26 MMOL/L (20-31); CHLORIDE LEVEL 96 MMOL/L (98-107); CREATININE FOR GFR 0.58 MG/DL (0.70-1.30); GLOMERULAR FILTRATION RATE > 60.0 (>56); GLUCOSE, FASTING 119 MG/DL (60-100); POTASSIUM SERUM 3.2 MMOL/L (3.5-5.1); SODIUM LEVEL 127 MMOL/L (136-145)
[2024-02-22] MEDS ORDERED: NS 1,000 ML IV ONE (18:05)
[2024-02-22] MEDS: cefTRIAXone SOD 1 GM in DEXTROSE 5% (D5W) ADV/MINI-BAG 50 ML IV ONE (18:25)
[2024-02-22 19:16] LABS: OSMOLALITY URINE 762 MOSM/KG (50-1400)
[2024-02-22 19:22] LABS: BLOOD UREA NITROGEN 24 MG/DL (9-23); CALCIUM LEVEL 9.4 MG/DL (8.5-10.1); CARBON DIOXIDE LEVEL 29 MMOL/L (20-31); CHLORIDE LEVEL 96 MMOL/L (98-107); CREATININE FOR GFR 0.71 MG/DL (0.70-1.30); GLOMERULAR FILTRATION RATE > 60.0 (>56); GLUCOSE, FASTING 109 MG/DL (60-100); POTASSIUM SERUM 3.2 MMOL/L (3.5-5.1); SODIUM LEVEL 128 MMOL/L (136-145)
[2024-02-22 19:25] LABS: SODIUM,RANDOM URINE 42 MMOL/L
[2024-02-22] MEDS: PIPERACILLIN/TAZOBACTAM SOD 4.5 GM in DEXTROSE 5% (D5W) ADV/MINI-BAG 50 ML IV SCH (19:59)
[2024-02-22] MEDS ORDERED: MAGN64TASA PO (20:18)
[2024-02-22] MEDS ORDERED: HOME MED LIST COMPLETE! XX SCH (20:20)
[2024-02-22] MEDS ORDERED: PROHANCE 279.3MG/ML 5ML VIAL As Ordered ONE (21:23)
[2024-02-22] MEDS ORDERED: PROHANCE 279.3MG/ML 15ML VIAL As Ordered ONE (21:24)
[2024-02-22 22:13] VITALS: BP 104/75; TEMP 98; O2SAT 95
[2024-02-23 00:01] VITALS: BP 104/65; TEMP 96.8; O2SAT 98
[2024-02-23 00:15] LABS: BLOOD UREA NITROGEN 29 MG/DL (9-23); CALCIUM LEVEL 9.3 MG/DL (8.5-10.1); CARBON DIOXIDE LEVEL 27 MMOL/L (20-31); CHLORIDE LEVEL 94 MMOL/L (98-107); CREATININE FOR GFR 0.74 MG/DL (0.70-1.30); GLOMERULAR FILTRATION RATE > 60.0 (>56); GLUCOSE, FASTING 122 MG/DL (60-100); POTASSIUM SERUM 3.4 MMOL/L (3.5-5.1); SODIUM LEVEL 128 MMOL/L (136-145)
[2024-02-23] MEDS: CALCIUM CARBONATE 500 MG CHEW U/D PO STA (00:41)
[2024-02-23] MEDS: POTASSIUM CHLORIDE 10MEQ SR TABLET PO STA (00:42)
[2024-02-23 03:51] VITALS: BP 109/72; TEMP 97.6; O2SAT 97
[2024-02-23 06:03] LABS: BASO % 0.3 % (0.0-1.0); HEMATOCRIT 41.3 % (42.0-52.0); LYMPH # 0.3 10^3/uL (1.5-5.0); LYMPH % 8.3 % (24.0-44.0); MEAN CORPUSCULAR HEMOGLOBIN 30.8 pg (27.0-33.0); MEAN CORPUSCULAR HGB CONC 36.3 g/dl (32.0-36.5); MEAN CORPUSCULAR VOLUME 84.8 fl (80.0-96.0); MONO # 0.2 10^3/uL (0.0-0.8); MONO % 6.4 % (2.0-8.0); NEUTROPHILS # 2.6 10^3/uL (1.5-8.5); NEUTROPHILS % 83.4 % (36.0-66.0); RED BLOOD COUNT 4.87 10^6/uL (4.30-6.10); WHITE BLOOD COUNT 3.1 10^3/uL (4.0-10.0)
[2024-02-23 06:09] LABS: PLATELET COUNT, AUTOMATED 48 10^3/uL (150-450)
[2024-02-23 06:24] LABS: BLOOD UREA NITROGEN 27 MG/DL (9-23); CALCIUM LEVEL 9.4 MG/DL (8.5-10.1); CARBON DIOXIDE LEVEL 30 MMOL/L (20-31); CHLORIDE LEVEL 96 MMOL/L (98-107); CREATININE FOR GFR 0.74 MG/DL (0.70-1.30); GLOMERULAR FILTRATION RATE > 60.0 (>56); GLUCOSE, FASTING 97 MG/DL (60-100); POTASSIUM SERUM 3.7 MMOL/L (3.5-5.1); SODIUM LEVEL 128 MMOL/L (136-145)
[2024-02-23 08:06] VITALS: BP 127/85; TEMP 96.7; O2SAT 99
[2024-02-23] MEDS ORDERED: OMEPRAZOLE 20MG CAP PO SCH (09:00)
[2024-02-23] MEDS ORDERED: BISACODYL 10MG SUPP PR PRN (09:00)
[2024-02-23] MEDS: CALCIUM CARBONATE 500 MG CHEW U/D PO PRN (09:52)
[2024-02-23] MEDS: buPROPion **XL** TABLET 150MG (WELLBUTRIN XL) PO SCH (10:05)
[2024-02-23] MEDS: APIXABAN 5 MG TAB (ELIQUIS) PO SCH (10:05)
[2024-02-23] MEDS: CARVedilol 12.5 MG TAB PO SCH (10:06)
[2024-02-23] MEDS: TAMSULOSIN 0.4 MG CAP PO SCH (10:06)
[2024-02-23] MEDS: PANTOPRAZOLE 40MG VIAL IV ONE (10:06)
[2024-02-23] MEDS: ENTRESTO 24-26MG TABLET (SACUBITRIL/VALSARTAN) PO SCH (10:06)
[2024-02-23] MEDS: MAALOX 30 ML SUSP *UDC PO ONE (11:20)
[2024-02-23] MEDS: MAGNESIUM GLUCONATE 500 MG TAB PO SCH (11:21)
[2024-02-23] MEDS: dexAMETHasone 4 MG TAB PO SCH (12:31)
[2024-02-23 12:54] VITALS: BP 104/72; TEMP 97.4; O2SAT 99
[2024-02-23 12:59] LABS: BLOOD UREA NITROGEN 29 MG/DL (9-23); CALCIUM LEVEL 8.8 MG/DL (8.5-10.1); CARBON DIOXIDE LEVEL 25 MMOL/L (20-31); CHLORIDE LEVEL 98 MMOL/L (98-107); CREATININE FOR GFR 0.68 MG/DL (0.70-1.30); GLOMERULAR FILTRATION RATE > 60.0 (>56); GLUCOSE, FASTING 130 MG/DL (60-100); POTASSIUM SERUM 3.3 MMOL/L (3.5-5.1); SODIUM LEVEL 128 MMOL/L (136-145)
[2024-02-23] MEDS ORDERED: MAALOX 30 ML SUSP *UDC PO PRN (15:00)
[2024-02-23] MEDS ORDERED: PREPARATION H OINTMENT (HEMORRHOID) PR PRN (15:15)
[2024-02-23 17:28] VITALS: BP 101/71; TEMP 97.5; O2SAT 98
[2024-02-23 18:41] LABS: BLOOD UREA NITROGEN 27 MG/DL (9-23); CALCIUM LEVEL 8.5 MG/DL (8.5-10.1); CARBON DIOXIDE LEVEL 25 MMOL/L (20-31); CHLORIDE LEVEL 98 MMOL/L (98-107); CREATININE FOR GFR 0.67 MG/DL (0.70-1.30); GLOMERULAR FILTRATION RATE > 60.0 (>56); GLUCOSE, FASTING 129 MG/DL (60-100); POTASSIUM SERUM 3.5 MMOL/L (3.5-5.1); SODIUM LEVEL 129 MMOL/L (136-145)
[2024-02-23 19:37] VITALS: BP 107/68; TEMP 97.4; O2SAT 98
[2024-02-23] MEDS: CETIRIZINE (ZyrTEC) 10 MG TAB PO SCH (20:19)
[2024-02-23] MEDS: PREPARATION H SUPP (HEMORRHOID) PR SCH (20:19)
[2024-02-23] MEDS: POTASSIUM CHLORIDE 10MEQ SR TABLET PO SCH (20:19)
[2024-02-24 00:06] VITALS: BP 112/68; TEMP 97.6; O2SAT 95
[2024-02-24 02:15] LABS: BLOOD UREA NITROGEN 25 MG/DL (9-23); CALCIUM LEVEL 8.2 MG/DL (8.5-10.1); CARBON DIOXIDE LEVEL 28 MMOL/L (20-31); CHLORIDE LEVEL 99 MMOL/L (98-107); CREATININE FOR GFR 0.56 MG/DL (0.70-1.30); GLOMERULAR FILTRATION RATE > 60.0 (>56); GLUCOSE, FASTING 123 MG/DL (60-100); POTASSIUM SERUM 3.9 MMOL/L (3.5-5.1); SODIUM LEVEL 128 MMOL/L (136-145)
[2024-02-24 03:44] VITALS: BP 102/64; TEMP 97.2; O2SAT 96
[2024-02-24 07:41] LABS: HEMATOCRIT 41.1 % (42.0-52.0); HEMOGLOBIN 14.9 g/dl (13.5-17.5); MEAN CORPUSCULAR HEMOGLOBIN 31.1 pg (27.0-33.0); MEAN CORPUSCULAR HGB CONC 36.3 g/dl (32.0-36.5); MEAN CORPUSCULAR VOLUME 85.8 fl (80.0-96.0); RED BLOOD COUNT 4.79 10^6/uL (4.30-6.10)
[2024-02-24 07:44] LABS: PLATELET COUNT, AUTOMATED 39 10^3/uL (150-450)
[2024-02-24 08:00] VITALS: BP 119/82; TEMP 97.2; O2SAT 98
[2024-02-24 08:12] LABS: BLOOD UREA NITROGEN 23 MG/DL (9-23); CALCIUM LEVEL 8.6 MG/DL (8.5-10.1); CARBON DIOXIDE LEVEL 29 MMOL/L (20-31); CHLORIDE LEVEL 98 MMOL/L (98-107); CREATININE FOR GFR 0.54 MG/DL (0.70-1.30); GLOMERULAR FILTRATION RATE > 60.0 (>56); GLUCOSE, FASTING 132 MG/DL (60-100); POTASSIUM SERUM 4.1 MMOL/L (3.5-5.1); SODIUM LEVEL 129 MMOL/L (136-145)
[2024-02-24 08:25] LABS: ATYPICAL LYMPH 1 % (0-5); LYMPHOCYTES 7 % (16-44); METAMYELOCYTES 1 % (0-0); MONOCYTES 2 % (0-5); MYELOCYTES 1 % (0-0); NEUTROPHILS 85 % (28-66)
[2024-02-24 08:26] LABS: PLATELET ESTIMATE MARKED DECREASE (NORMAL)
[2024-02-24] MEDS ORDERED: ANUSOL HC CREAM 30GM TOP SCH (09:00)
[2024-02-24] MEDS: cefTRIAXone SOD 1 GM in DEXTROSE 5% (D5W) ADV/MINI-BAG 50 ML IV SCH (09:56)
[2024-02-24] MEDS: MOM 30ML SUSPENSION UDC PO ONE (09:56)
[2024-02-24] MEDS: PANTOPRAZOLE 40MG TAB (PROTONIX) PO SCH (09:57)
[2024-02-24] MEDS: LACTULOSE 20GM/30ML SYRUP UDC PO ONE (09:58)
[2024-02-24 09:59] VITALS: BP 128/98
[2024-02-24] MEDS ORDERED: MOM 30ML SUSPENSION UDC PO PRN (12:00)
[2024-02-24] MEDS ORDERED: LACTULOSE 20GM/30ML SYRUP UDC PO PRN (12:00)
[2024-02-24 12:50] VITALS: BP 121/86; TEMP 97.5; O2SAT 99
[2024-02-24 12:53] LABS: BLOOD UREA NITROGEN 23 MG/DL (9-23); CALCIUM LEVEL 8.4 MG/DL (8.5-10.1); CARBON DIOXIDE LEVEL 26 MMOL/L (20-31); CHLORIDE LEVEL 96 MMOL/L (98-107); CREATININE FOR GFR 0.47 MG/DL (0.70-1.30); GLOMERULAR FILTRATION RATE > 60.0 (>56); GLUCOSE, FASTING 130 MG/DL (60-100); POTASSIUM SERUM 4.1 MMOL/L (3.5-5.1); SODIUM LEVEL 125 MMOL/L (136-145)
[2024-02-24] MEDS: CEFDINIR 300 MG CAP (OMNICEF) PO SCH (15:26)
[2024-02-24] MEDS: FAMOTIDINE 20 MG TAB PO PRN (15:28)
[2024-02-24] MEDS: SODIUM CHLORIDE 1 GM TAB PO SCH (17:59)
[2024-02-24 20:28] VITALS: BP 120/83; TEMP 97.3; O2SAT 98
[2024-02-25 04:00] VITALS: BP 131/90; TEMP 97.3; O2SAT 99
[2024-02-25 06:06] LABS: BASO % 0.3 % (0.0-1.0); HEMATOCRIT 38.3 % (42.0-52.0); HEMOGLOBIN 14.1 g/dl (13.5-17.5); LYMPH # 0.3 10^3/uL (1.5-5.0); LYMPH % 9.1 % (24.0-44.0); MEAN CORPUSCULAR HEMOGLOBIN 31.3 pg (27.0-33.0); MEAN CORPUSCULAR HGB CONC 36.8 g/dl (32.0-36.5); MEAN CORPUSCULAR VOLUME 84.9 fl (80.0-96.0); MONO # 0.1 10^3/uL (0.0-0.8); NEUTROPHILS # 2.9 10^3/uL (1.5-8.5); NEUTROPHILS % 81.5 % (36.0-66.0); PLATELET COUNT, AUTOMATED 41 10^3/uL (150-450); RED BLOOD COUNT 4.51 10^6/uL (4.30-6.10); WHITE BLOOD COUNT 3.5 10^3/uL (4.0-10.0)
[2024-02-25] MEDS: TOLVAPTAN 15 MG TAB (SAMSCA) PO ONE (11:51)
[2024-02-25 12:00] VITALS: BP 120/94; TEMP 97.7; O2SAT 98
[2024-02-26 04:00] VITALS: BP 116/88; TEMP 97.7; O2SAT 96
[2024-02-26 06:20] LABS: HEMATOCRIT 45.2 % (42.0-52.0); MEAN CORPUSCULAR HGB CONC 36.1 g/dl (32.0-36.5); MEAN CORPUSCULAR VOLUME 85.9 fl (80.0-96.0); RED BLOOD COUNT 5.26 10^6/uL (4.30-6.10); WHITE BLOOD COUNT 4.9 10^3/uL (4.0-10.0)
[2024-02-26 06:23] LABS: PLATELET COUNT, AUTOMATED 53 10^3/uL (150-450)
[2024-02-26 06:24] LABS: HEMOGLOBIN 16.3 g/dl (13.5-17.5)
[2024-02-26 06:48] LABS: BLOOD UREA NITROGEN 26 MG/DL (9-23); CALCIUM LEVEL 9.9 MG/DL (8.5-10.1); CARBON DIOXIDE LEVEL 28 MMOL/L (20-31); CHLORIDE LEVEL 105 MMOL/L (98-107); CREATININE FOR GFR 0.56 MG/DL (0.70-1.30); GLOMERULAR FILTRATION RATE > 60.0 (>56); GLUCOSE, FASTING 152 MG/DL (60-100); SODIUM LEVEL 136 MMOL/L (136-145)
[2024-02-26 07:31] LABS: ATYPICAL LYMPH 4 % (0-5); LYMPHOCYTES 2 % (16-44); MONOCYTES 4 % (0-5); MYELOCYTES 1 % (0-0); NEUTROPHILS 86 % (28-66)
[2024-02-26 07:33] LABS: ANISOCYTOSIS 1+; PLATELET ESTIMATE DECREASED (NORMAL)
[2024-02-26 12:00] VITALS: BP 126/87; TEMP 97.5; O2SAT 90
[2024-02-26 19:43] VITALS: BP 117/85; TEMP 97.7; O2SAT 95
[2024-02-27 04:21] VITALS: BP 115/83; TEMP 97.5; O2SAT 93
[2024-02-27 06:08] LABS: BASO % 0.2 % (0.0-1.0); HEMATOCRIT 41.4 % (42.0-52.0); LYMPH # 0.3 10^3/uL (1.5-5.0); LYMPH % 6.7 % (24.0-44.0); MEAN CORPUSCULAR HEMOGLOBIN 31.3 pg (27.0-33.0); MEAN CORPUSCULAR HGB CONC 36.2 g/dl (32.0-36.5); MEAN CORPUSCULAR VOLUME 86.4 fl (80.0-96.0); MONO # 0.2 10^3/uL (0.0-0.8); MONO % 5.1 % (2.0-8.0); NEUTROPHILS # 3.7 10^3/uL (1.5-8.5); NEUTROPHILS % 81.8 % (36.0-66.0); RED BLOOD COUNT 4.79 10^6/uL (4.30-6.10); WHITE BLOOD COUNT 4.5 10^3/uL (4.0-10.0)
[2024-02-27 06:13] LABS: PLATELET COUNT, AUTOMATED 42 10^3/uL (150-450)
[2024-02-27 07:30] LABS: BLOOD UREA NITROGEN 29 MG/DL (9-23); CALCIUM LEVEL 9.5 MG/DL (8.5-10.1); CARBON DIOXIDE LEVEL 26 MMOL/L (20-31); CHLORIDE LEVEL 99 MMOL/L (98-107); CREATININE FOR GFR 0.46 MG/DL (0.70-1.30); GLOMERULAR FILTRATION RATE > 60.0 (>56); GLUCOSE, FASTING 147 MG/DL (60-100); POTASSIUM SERUM 3.9 MMOL/L (3.5-5.1); SODIUM LEVEL 131 MMOL/L (136-145)
[2024-02-27 12:00] VITALS: BP 115/81; TEMP 97.3; O2SAT 93
[2024-02-27 13:26] LABS: BLOOD UREA NITROGEN 29 MG/DL (9-23); CALCIUM LEVEL 8.9 MG/DL (8.5-10.1); CARBON DIOXIDE LEVEL 23 MMOL/L (20-31); CHLORIDE LEVEL 100 MMOL/L (98-107); CREATININE FOR GFR 0.56 MG/DL (0.70-1.30); GLOMERULAR FILTRATION RATE > 60.0 (>56); GLUCOSE, FASTING 135 MG/DL (60-100); SODIUM LEVEL 128 MMOL/L (136-145)
[2024-02-27] MEDS: TOLVAPTAN 7.5 MG HALF-TAB PO ONE (14:24)
[2024-02-27 19:45] VITALS: BP 115/79; TEMP 97.7; O2SAT 91
[2024-02-28 04:29] VITALS: BP 105/71; TEMP 97.3; O2SAT 90
[2024-02-28 06:11] LABS: BASO % 0.3 % (0.0-1.0); HEMATOCRIT 41.9 % (42.0-52.0); HEMOGLOBIN 14.8 g/dl (13.5-17.5); LYMPH # 0.3 10^3/uL (1.5-5.0); LYMPH % 8.2 % (24.0-44.0); MEAN CORPUSCULAR HEMOGLOBIN 30.2 pg (27.0-33.0); MEAN CORPUSCULAR HGB CONC 35.3 g/dl (32.0-36.5); MEAN CORPUSCULAR VOLUME 85.5 fl (80.0-96.0); MONO # 0.2 10^3/uL (0.0-0.8); MONO % 4.6 % (2.0-8.0); NEUTROPHILS # 3.1 10^3/uL (1.5-8.5); NEUTROPHILS % 79.5 % (36.0-66.0); WHITE BLOOD COUNT 3.9 10^3/uL (4.0-10.0)
[2024-02-28 06:13] LABS: PLATELET COUNT, AUTOMATED 44 10^3/uL (150-450)
[2024-02-28 06:51] LABS: BLOOD UREA NITROGEN 28 MG/DL (9-23); CARBON DIOXIDE LEVEL 26 MMOL/L (20-31); CHLORIDE LEVEL 100 MMOL/L (98-107); CREATININE FOR GFR 0.47 MG/DL (0.70-1.30); GLOMERULAR FILTRATION RATE > 60.0 (>56); GLUCOSE, FASTING 147 MG/DL (60-100); POTASSIUM SERUM 3.7 MMOL/L (3.5-5.1); SODIUM LEVEL 133 MMOL/L (136-145)
[2024-02-28 11:52] VITALS: BP 99/76; TEMP 98.7; O2SAT 95
[2024-02-28] MEDS: TOLVAPTAN 7.5 MG HALF-TAB PO SCH (14:40)
[2024-02-28 20:12] VITALS: BP 98/75; TEMP 97.9; O2SAT 95
[2024-02-29 04:13] VITALS: BP 96/72; TEMP 97.5; O2SAT 94
[2024-02-29 06:29] LABS: HEMATOCRIT 41.8 % (42.0-52.0); HEMOGLOBIN 14.9 g/dl (13.5-17.5); MEAN CORPUSCULAR HEMOGLOBIN 30.5 pg (27.0-33.0); MEAN CORPUSCULAR HGB CONC 35.6 g/dl (32.0-36.5); MEAN CORPUSCULAR VOLUME 85.5 fl (80.0-96.0); RED BLOOD COUNT 4.89 10^6/uL (4.30-6.10); WHITE BLOOD COUNT 3.9 10^3/uL (4.0-10.0)
[2024-02-29 06:42] LABS: PLATELET COUNT, AUTOMATED 49 10^3/uL (150-450)
[2024-02-29 06:51] LABS: BLOOD UREA NITROGEN 30 MG/DL (9-23); CALCIUM LEVEL 9.3 MG/DL (8.5-10.1); CARBON DIOXIDE LEVEL 26 MMOL/L (20-31); CHLORIDE LEVEL 99 MMOL/L (98-107); CREATININE FOR GFR 0.52 MG/DL (0.70-1.30); GLOMERULAR FILTRATION RATE > 60.0 (>56); GLUCOSE, FASTING 171 MG/DL (60-100); SODIUM LEVEL 136 MMOL/L (136-145)
[2024-02-29 07:46] LABS: ATYPICAL LYMPH 12 % (0-5); LYMPHOCYTES 4 % (16-44); MONOCYTES 4 % (0-5); NEUTROPHILS 72 % (28-66)
[2024-02-29 07:47] LABS: ANISOCYTOSIS 1+
[2024-02-29 07:48] LABS: PLATELET ESTIMATE DECREASED (NORMAL)
[2024-02-29 12:27] VITALS: BP 117/86; TEMP 97.7; O2SAT 100
[2024-02-29 20:00] VITALS: TEMP 97.7
[2024-02-29] MEDS: NYSTATIN 500,000U/5ML SUSP UDC SS SCH (20:07)
[2024-02-29 21:52] VITALS: BP 98/70; TEMP 97.7; O2SAT 99
[2024-03-01 04:00] VITALS: BP 120/86; TEMP 97.3; O2SAT 100
[2024-03-01 06:40] LABS: BASO % 0.8 % (0.0-1.0); HEMATOCRIT 40.4 % (42.0-52.0); HEMOGLOBIN 14.2 g/dl (13.5-17.5); LYMPH # 0.3 10^3/uL (1.5-5.0); LYMPH % 7.8 % (24.0-44.0); MEAN CORPUSCULAR HEMOGLOBIN 30.7 pg (27.0-33.0); MEAN CORPUSCULAR HGB CONC 35.1 g/dl (32.0-36.5); MEAN CORPUSCULAR VOLUME 87.4 fl (80.0-96.0); MONO # 0.2 10^3/uL (0.0-0.8); MONO % 4.5 % (2.0-8.0); NEUTROPHILS # 2.8 10^3/uL (1.5-8.5); NEUTROPHILS % 77.1 % (36.0-66.0); RED BLOOD COUNT 4.62 10^6/uL (4.30-6.10); WHITE BLOOD COUNT 3.6 10^3/uL (4.0-10.0)
[2024-03-01 06:42] LABS: PLATELET COUNT, AUTOMATED 40 10^3/uL (150-450)
[2024-03-01 06:56] LABS: BLOOD UREA NITROGEN 33 MG/DL (9-23); CALCIUM LEVEL 9.2 MG/DL (8.5-10.1); CARBON DIOXIDE LEVEL 30 MMOL/L (20-31); CHLORIDE LEVEL 99 MMOL/L (98-107); CREATININE FOR GFR 0.59 MG/DL (0.70-1.30); GLOMERULAR FILTRATION RATE > 60.0 (>56); GLUCOSE, FASTING 150 MG/DL (60-100); POTASSIUM SERUM 4.4 MMOL/L (3.5-5.1); SODIUM LEVEL 133 MMOL/L (136-145)
[2024-03-01 12:00] VITALS: BP 104/70; TEMP 97.6; O2SAT 99
[2024-03-01] MEDS: TOLVAPTAN 7.5 MG HALF-TAB PO SCH (13:47)
[2024-03-01 19:57] VITALS: BP 115/82; TEMP 98.1
[2024-03-02 04:48] VITALS: BP 109/79; TEMP 97.9; O2SAT 98
[2024-03-02 06:17] LABS: BASO % 0.3 % (0.0-1.0); HEMATOCRIT 38.6 % (42.0-52.0); LYMPH # 0.2 10^3/uL (1.5-5.0); LYMPH % 6.3 % (24.0-44.0); MEAN CORPUSCULAR HGB CONC 36.3 g/dl (32.0-36.5); MEAN CORPUSCULAR VOLUME 85.4 fl (80.0-96.0); MONO # 0.1 10^3/uL (0.0-0.8); NEUTROPHILS # 2.5 10^3/uL (1.5-8.5); NEUTROPHILS % 83.2 % (36.0-66.0); RED BLOOD COUNT 4.52 10^6/uL (4.30-6.10)
[2024-03-02 06:19] LABS: PLATELET COUNT, AUTOMATED 39 10^3/uL (150-450)
[2024-03-02 06:36] LABS: C REACTIVE PROTEIN QUANTITATIV < 0.40 MG/DL (<1.0)
[2024-03-02 06:38] LABS: ALBUMIN 2.5 G/DL (3.2-5.2); ALKALINE PHOSPHATASE 57 U/L (46-116); ALT/SGPT 54 U/L (7.0-40); AST/SGOT 9 U/L (<34); BILIRUBIN,TOTAL 0.5 MG/DL (0.3-1.2); BLOOD UREA NITROGEN 27 MG/DL (9-23); CALCIUM LEVEL 9.2 MG/DL (8.5-10.1); CARBON DIOXIDE LEVEL 29 MMOL/L (20-31); CHLORIDE LEVEL 99 MMOL/L (98-107); CREATININE FOR GFR 0.53 MG/DL (0.70-1.30); GLOMERULAR FILTRATION RATE > 60.0 (>56); GLUCOSE, FASTING 153 MG/DL (60-100); POTASSIUM SERUM 4.4 MMOL/L (3.5-5.1); SODIUM LEVEL 132 MMOL/L (136-145); TOTAL PROTEIN 5.2 G/DL (5.7-8.2)
[2024-03-02 12:00] VITALS: BP 124/89; TEMP 97.5; O2SAT 99
[2024-03-02 20:04] VITALS: BP 119/85; TEMP 98.4; O2SAT 94
[2024-03-03 04:21] VITALS: BP 109/76; TEMP 97.5; O2SAT 97
[2024-03-03 06:50] LABS: BLOOD UREA NITROGEN 28 MG/DL (9-23); CALCIUM LEVEL 8.9 MG/DL (8.5-10.1); CARBON DIOXIDE LEVEL 28 MMOL/L (20-31); CHLORIDE LEVEL 98 MMOL/L (98-107); CREATININE FOR GFR 0.46 MG/DL (0.70-1.30); GLOMERULAR FILTRATION RATE > 60.0 (>56); GLUCOSE, FASTING 166 MG/DL (60-100); SODIUM LEVEL 131 MMOL/L (136-145)
[2024-03-03 09:00] VITALS: BP 110/80; TEMP 97.3; O2SAT 98
[2024-03-03 12:59] VITALS: BP 114/82; TEMP 97.5; O2SAT 97
[2024-03-03 15:50] VITALS: BP 108/83; TEMP 97.7; O2SAT 96
[2024-03-03 20:13] VITALS: BP 107/82; TEMP 97.7; O2SAT 99
[2024-03-04 04:00] VITALS: BP 97/70; TEMP 97.2; O2SAT 97
[2024-03-04 07:45] LABS: BASO % 0.3 % (0.0-1.0); HEMATOCRIT 38.1 % (42.0-52.0); HEMOGLOBIN 13.8 g/dl (13.5-17.5); LYMPH # 0.2 10^3/uL (1.5-5.0); LYMPH % 7.2 % (24.0-44.0); MEAN CORPUSCULAR HEMOGLOBIN 30.7 pg (27.0-33.0); MEAN CORPUSCULAR HGB CONC 36.2 g/dl (32.0-36.5); MEAN CORPUSCULAR VOLUME 84.9 fl (80.0-96.0); MONO # 0.1 10^3/uL (0.0-0.8); MONO % 3.1 % (2.0-8.0); NEUTROPHILS # 2.4 10^3/uL (1.5-8.5); NEUTROPHILS % 81.8 % (36.0-66.0); RED BLOOD COUNT 4.49 10^6/uL (4.30-6.10); WHITE BLOOD COUNT 2.9 10^3/uL (4.0-10.0)
[2024-03-04 07:57] LABS: PLATELET COUNT, AUTOMATED 38 10^3/uL (150-450)
[2024-03-04 08:05] LABS: BLOOD UREA NITROGEN 25 MG/DL (9-23); CALCIUM LEVEL 9.1 MG/DL (8.5-10.1); CARBON DIOXIDE LEVEL 27 MMOL/L (20-31); CHLORIDE LEVEL 101 MMOL/L (98-107); CREATININE FOR GFR 0.45 MG/DL (0.70-1.30); GLOMERULAR FILTRATION RATE > 60.0 (>56); GLUCOSE, FASTING 152 MG/DL (60-100); POTASSIUM SERUM 4.2 MMOL/L (3.5-5.1); SODIUM LEVEL 134 MMOL/L (136-145)
[2024-03-04 12:00] VITALS: BP 108/78; TEMP 98.1; O2SAT 98
[2024-03-04 13:56] LABS: C REACTIVE PROTEIN QUANTITATIV < 0.40 MG/DL (<1.0)
[2024-03-04 13:58] LABS: BLOOD UREA NITROGEN 23 MG/DL (9-23); CALCIUM LEVEL 8.8 MG/DL (8.5-10.1); CARBON DIOXIDE LEVEL 24 MMOL/L (20-31); CHLORIDE LEVEL 100 MMOL/L (98-107); CREATININE FOR GFR 0.46 MG/DL (0.70-1.30); GLOMERULAR FILTRATION RATE > 60.0 (>56); GLUCOSE, FASTING 186 MG/DL (60-100); POTASSIUM SERUM 4.1 MMOL/L (3.5-5.1); SODIUM LEVEL 131 MMOL/L (136-145)
[2024-03-04 14:00] LABS: RHEUMATOID FACTOR QUANT < 3.5 IU/ML (<14)
[2024-03-04 20:00] VITALS: BP 105/68; TEMP 97.3; O2SAT 97
[2024-03-05 04:00] VITALS: BP 116/81; TEMP 97; O2SAT 98
[2024-03-05 07:24] LABS: BLOOD UREA NITROGEN 24 MG/DL (9-23); CALCIUM LEVEL 8.9 MG/DL (8.5-10.1); CARBON DIOXIDE LEVEL 27 MMOL/L (20-31); CHLORIDE LEVEL 99 MMOL/L (98-107); CREATININE FOR GFR 0.44 MG/DL (0.70-1.30); GLOMERULAR FILTRATION RATE > 60.0 (>56); GLUCOSE, FASTING 154 MG/DL (60-100); POTASSIUM SERUM 4.3 MMOL/L (3.5-5.1); SODIUM LEVEL 132 MMOL/L (136-145)
[2024-03-05 12:00] VITALS: BP 115/79; TEMP 97.7; O2SAT 98
[2024-03-05 19:56] VITALS: BP 114/79; TEMP 97.3; O2SAT 96
[2024-03-06 04:28] VITALS: BP 115/70; TEMP 97.7; O2SAT 96
[2024-03-06 09:04] LABS: BLOOD UREA NITROGEN 21 MG/DL (9-23); CARBON DIOXIDE LEVEL 24 MMOL/L (20-31); CHLORIDE LEVEL 98 MMOL/L (98-107); GLOMERULAR FILTRATION RATE > 60.0 (>56); GLUCOSE, FASTING 196 MG/DL (60-100); POTASSIUM SERUM 4.1 MMOL/L (3.5-5.1); SODIUM LEVEL 130 MMOL/L (136-145)
[2024-03-06 11:55] VITALS: BP 107/73; TEMP 97.3; O2SAT 96
[2024-03-06 20:00] VITALS: BP 107/73; TEMP 97.7; O2SAT 92
[2024-03-07 04:15] VITALS: BP 96/64; TEMP 97.7; O2SAT 90
[2024-03-07 07:38] LABS: BASO % 0.4 % (0.0-1.0); HEMATOCRIT 38.5 % (42.0-52.0); HEMOGLOBIN 13.8 g/dl (13.5-17.5); LYMPH # 0.3 10^3/uL (1.5-5.0); LYMPH % 12.7 % (24.0-44.0); MEAN CORPUSCULAR HEMOGLOBIN 30.7 pg (27.0-33.0); MEAN CORPUSCULAR HGB CONC 35.8 g/dl (32.0-36.5); MEAN CORPUSCULAR VOLUME 85.7 fl (80.0-96.0); MONO # 0.1 10^3/uL (0.0-0.8); NEUTROPHILS # 1.9 10^3/uL (1.5-8.5); NEUTROPHILS % 74.2 % (36.0-66.0); RED BLOOD COUNT 4.49 10^6/uL (4.30-6.10); WHITE BLOOD COUNT 2.6 10^3/uL (4.0-10.0)
[2024-03-07 07:42] LABS: PLATELET COUNT, AUTOMATED 33 10^3/uL (150-450)
[2024-03-07 08:04] LABS: BLOOD UREA NITROGEN 23 MG/DL (9-23); CALCIUM LEVEL 8.6 MG/DL (8.5-10.1); CARBON DIOXIDE LEVEL 26 MMOL/L (20-31); CHLORIDE LEVEL 99 MMOL/L (98-107); GLOMERULAR FILTRATION RATE > 60.0 (>56); GLUCOSE, FASTING 177 MG/DL (60-100); POTASSIUM SERUM 4.1 MMOL/L (3.5-5.1); SODIUM LEVEL 129 MMOL/L (136-145)
[2024-03-07 12:00] VITALS: BP 112/77; TEMP 97.6; O2SAT 95
[2024-03-07 13:23] LABS: ANA SCREEN, IFA NEGATIVE (NEGATIVE)
[2024-03-07 19:57] VITALS: BP 104/72; TEMP 97.7; O2SAT 94
[2024-03-08 04:14] VITALS: BP 102/64; TEMP 97.3; O2SAT 92
[2024-03-08 09:03] LABS: ALBUMIN 2.5 G/DL (3.2-5.2); BLOOD UREA NITROGEN 23 MG/DL (9-23); CALCIUM LEVEL 8.8 MG/DL (8.5-10.1); CARBON DIOXIDE LEVEL 25 MMOL/L (20-31); CHLORIDE LEVEL 101 MMOL/L (98-107); CREATININE FOR GFR 0.43 MG/DL (0.70-1.30); GLOMERULAR FILTRATION RATE > 60.0 (>56); GLUCOSE, FASTING 229 MG/DL (60-100); PHOSPHORUS LEVEL 2.5 MG/DL (2.5-4.9); POTASSIUM SERUM 4.1 MMOL/L (3.5-5.1); SODIUM LEVEL 134 MMOL/L (136-145)
[2024-03-08] MEDS ORDERED: HYOSCYAMINE SULFATE 0.125 MG SUBL TABLET PO PRN (11:00)
[2024-03-08] MEDS ORDERED: MORPHINE 10MG/0.5ML ORAL CONCENTRATE SOLUTION U/D SL PRN (11:00)
[2024-03-08] MEDS ORDERED: LORazepam 1 MG TAB PO PRN (11:00)
[2024-03-08] MEDS ORDERED: ONDANSETRON 4MG ORAL DISINTEGRATING TAB PO PRN (11:00)
[2024-03-09] MEDS: dexAMETHasone 4 MG TAB PO SCH (09:09)
[2024-03-10] MEDS: LORazepam 0.5 MG TAB PO SCH (11:23)
[2024-03-12 09:34] VITALS: BP 120/82
[2024-03-13] MEDS ORDERED: LACT20EL PO (10:08)
[2024-03-13] MEDS ORDERED: HYOS125TA PO (10:08)
[2024-03-13] MEDS ORDERED: ONDA-282 PO (10:08)
[2024-03-13] MEDS ORDERED: BISA10SU PR (10:08)
[2024-03-13] MEDS ORDERED: MOM30SS2 PO (10:08)
[2024-03-13] MEDS ORDERED: NYST-38 SS (10:08)
[2024-03-13] MEDS ORDERED: ATIV1TAB10 PO ×2 (10:08→12:46)
[2024-03-13] MEDS ORDERED: MYLASSUD PO (10:08)
[2024-03-13] MEDS ORDERED: ATIV1TAB7 PO (10:08)
[2024-03-13] MEDS ORDERED: PANT40TA29 PO (10:08)
[2024-03-13] MEDS ORDERED: MORP1SOL SL (10:08)
[2024-03-13] MEDS ORDERED: CALC200T15 PO (10:08)
[2024-03-13] MEDS ORDERED: MORP1SOL5 PO (12:46)
== END 2024-03-13 13:30 | disposition hospice, inpatient (51) | DRG 48 ==
LOC: EDBD 11:07 → M ED 11:07 → M ED INP 17:49 → M PCU 22:10 → M MS5PR 02-24 10:30
PROVIDERS: ADMIT General Practice; ATTEND Student in an Organized Health Care Education/Training Program
DX: G83.4 Cauda equina syndrome (principal); C79.31 Secondary malignant neoplasm of brain; C79.49 Secondary malignant neoplasm of other parts of nervous system; C79.51 Secondary malignant neoplasm of bone; E22.2 Syndrome of inappropriate secretion of antidiuretic hormone; N10 Acute pyelonephritis; D69.6 Thrombocytopenia, unspecified; I48.91 Unspecified atrial fibrillation; C34.90 Malignant neoplasm of unspecified part of unspecified bronchus or lung; I10 Essential (primary) hypertension; K21.9 Gastro-esophageal reflux disease without esophagitis; N39.0 Urinary tract infection, site not specified; R33.9 Retention of urine, unspecified; Z79.899 Other long term (current) drug therapy; F17.200 Nicotine dependence, unspecified, uncomplicated; G62.89 Other specified polyneuropathies; Z92.21 Personal history of antineoplastic chemotherapy; Z92.3 Personal history of irradiation; N40.0 Benign prostatic hyperplasia without lower urinary tract symptoms; B96.1 Klebsiella pneumoniae [K. pneumoniae] as the cause of diseases classified elsewhere; Z66 Do not resuscitate; G95.20 Unspecified cord compression

== ENCOUNTER → 2024-03-09 | Outpatient (RCR) | payer OTHER ==
[~2024-03-09] MED LIST changes: +ATIV1TAB10 PO; +ATIV1TAB7 PO; +BISA10SU PR; +CALC200T15 PO; +HYOS125TA PO; +LACT20EL PO; +MAGN64TASA PO; +MOM30SS2 PO; +MORP1SOL SL; +MORP1SOL5 PO; +MYLASSUD PO; +NYST-38 SS; +ONDA-282 PO; +PANT40TA29 PO
== END ==
LOC: M ONCR 02-24 14:43
PROVIDERS: ATTEND General Practice
DX: Z51.0 Encounter for antineoplastic radiation therapy (principal); C79.31 Secondary malignant neoplasm of brain

== ENCOUNTER 2024-03-10 12:05 | Outpatient (RCR) | payer OTHER ==
[~2024-03-10 12:05] MED LIST changes: -ATIV1TAB10 PO; -ATIV1TAB7 PO; -BISA10SU PR; -CALC200T15 PO; -HYOS125TA PO; -LACT20EL PO; -MOM30SS2 PO; -MORP1SOL SL; -MORP1SOL5 PO; -MYLASSUD PO; -NYST-38 SS; -ONDA-282 PO; -PANT40TA29 PO
[2024-03-13] MEDS ORDERED: PANT40TA29 PO (10:08)
[2024-03-13] MEDS ORDERED: LACT20EL PO (10:08)
[2024-03-13] MEDS ORDERED: ATIV1TAB7 PO (10:08)
[2024-03-13] MEDS ORDERED: CALC200T15 PO (10:08)
[2024-03-13] MEDS ORDERED: MORP1SOL SL (10:08)
[2024-03-13] MEDS ORDERED: ONDA-282 PO (10:08)
[2024-03-13] MEDS ORDERED: BISA10SU PR (10:08)
[2024-03-13] MEDS ORDERED: NYST-38 SS (10:08)
[2024-03-13] MEDS ORDERED: MOM30SS2 PO (10:08)
[2024-03-13] MEDS ORDERED: MYLASSUD PO (10:08)
[2024-03-13] MEDS ORDERED: ATIV1TAB10 PO ×2 (10:08→12:46)
[2024-03-13] MEDS ORDERED: HYOS125TA PO (10:08)
[2024-03-13] MEDS ORDERED: MORP1SOL5 PO (12:46)
== END 2024-04-08 ==
LOC: M ONCR 12:05
PROVIDERS: ATTEND General Practice
DX: Z51.0 Encounter for antineoplastic radiation therapy (principal); C79.31 Secondary malignant neoplasm of brain